=== PATIENT | male | born 1965 | race Caucasian/White ===

== ENCOUNTER 2017-04-06 07:40 | Day surgery (SDC) | payer OTHER ==
[2017-04-06 09:15] LABS: POTASSIUM 4.8 mmol/L (3.5-5.1)
[2017-04-06] MEDS ORDERED: LIDOCAINE 1% (MDV) 20 ML INJ (10:32)
[2017-04-06] MEDS ORDERED: IODIXANOL LOCM 100 ML BTL (10:32)
[2017-04-06] MEDS ORDERED: HEPARIN 1000 UNITS/NS (A-LINE) 1,000 ML (10:32)
[2017-04-06] MEDS ORDERED: MIDAZOLAM 1 MG/ML 2 ML INJ (11:36)
[2017-04-06] MEDS ORDERED: FENTAnyl 50 MCG/ML VIAL (11:36)
[2017-04-06] MEDS: hydrALAzine 20 MG INJ IV (12:37)
== END 2017-04-06 13:40 | disposition home or self-care (01) ==
LOC: SDS 07:40
DX: I12.0 Hypertensive chronic kidney disease with stage 5 chronic kidney disease or end stage renal disease (principal); N18.6 End stage renal disease
CPT/HCPCS: 37248; 84132

== ENCOUNTER 2017-07-06 03:29 | Inpatient (IN) | payer OTHER ==
[2017-07-06] MEDS: morphine 4 MG/ML VIAL IV (04:34)
[2017-07-06] MEDS: ONDANSETRON 4 MG INJ IV ×2 (04:34→05:57)
[2017-07-06 04:52] LABS: ADD MAN DIFF? NO
[2017-07-06 04:54] LABS: BASOPHILS % 0.4 % (0.0-2.0); EOSINOPHILS # 0.2 10^3/ul (0.0-0.5); EOSINOPHILS % 4.3 % (0.0-7.0); HEMATOCRIT 28.9 % (42.0-52.0); HEMOGLOBIN 9.4 g/dl (14.0-18.0); LYMPHOCYTES # 0.6 10^3/ul (0.8-2.9); LYMPHOCYTES % 13.9 % (15.0-51.0); MEAN CORPUSCULAR HEMOGLOBIN 32.8 pg (29.0-33.0); MEAN CORPUSCULAR HGB CONC 32.5 g/dl (32.0-37.0); MEAN CORPUSCULAR VOLUME 100.7 fl (82.0-101.0); MEAN PLATELET VOLUME 9.3 fl (7.4-10.4); MONOCYTE # 0.4 10^3/ul (0.3-0.9); MONOCYTES % 8.8 % (0.0-11.0); NEUTROPHIL # 3.2 10^3/ul (1.6-7.5); NEUTROPHILS % 72.2 % (39.0-77.0); PLATELET COUNT 113 10^3/UL (140-415); RED BLOOD COUNT 2.87 10^6/ul (4.70-6.10); RED CELL DISTRIBUTION WIDTH 14.4 % (11.5-14.5)
[2017-07-06 04:54] LABS: WHITE BLOOD COUNT 4.5 10^3/ul (4.8-10.8)
[2017-07-06 05:13] LABS: INR 1.23; PROTIME 15.7 Sec (11.9-14.9); PT RATIO 1.2
[2017-07-06 05:14] LABS: PARTIAL THROMBOPLASTIN TIME 45.7 Sec (25.0-35.0)
[2017-07-06 05:16] LABS: LACTIC ACID 0.5 mmol/L (0.5-2.0)
[2017-07-06 05:19] LABS: ALANINE AMINOTRANSFERASE 47 IU/L (13-69); ALBUMIN 3.8 g/dl (3.3-4.9); ALBUMIN/GLOBULIN RATIO 1.58; ALKALINE PHOSPHATASE 74 IU/L (42-121); ANION GAP 19 (8-16); ASPARTATE AMINO TRANSFERASE 35 IU/L (15-46); BLOOD UREA NITROGEN 71 mg/dl (7-20); CALCIUM 8.4 mg/dl (8.4-10.2); CARBON DIOXIDE 29 mmol/L (21-31); CHLORIDE 101 mmol/L (97-110); GLUCOSE 106 mg/dl (70-220); SODIUM 141 mmol/L (135-144); TOTAL PROTEIN 6.2 g/dl (6.1-8.1)
[2017-07-06 05:30] LABS: TROPONIN-I 0.015 ng/ml (0.00-0.12)
[2017-07-06 05:34] LABS: POTASSIUM 7.5 mmol/L (3.5-5.1)
[2017-07-06] MEDS: NA POLYST SULFON 15 GM/60 ML BTL PO (05:49)
[2017-07-06] MEDS: CALCIUM GLUCONATE 10% 1 GM in DEXTROSE 5% 100 ML IVPB (05:57)
[2017-07-06 06:26] LABS: LACTIC ACID 0.6 mmol/L (0.5-2.0)
[2017-07-06] MEDS ORDERED: DOCUSATE SODIUM 100 MG CAP PO ×2 (06:30→07:00)
[2017-07-06] MEDS ORDERED: VANCOMYCIN IV PER PHARMACY XX (06:30)
[2017-07-06] MEDS ORDERED: BISACODYL (EC) 5 MG TAB PO (06:30)
[2017-07-06] MEDS ORDERED: NACL 0.9% 3 ML SYG IV ×2 (06:30→07:00)
[2017-07-06] MEDS ORDERED: MAGNESIUM HYDROXIDE 30ML CUP PO (06:30)
[2017-07-06] MEDS ORDERED: BISACODYL 10 MG SUPP PR (06:30)
[2017-07-06] MEDS ORDERED: ONDANSETRON 4 MG TAB PO (07:00)
[2017-07-06] MEDS ORDERED: ONDANSETRON 4 MG INJ IV (07:00)
[2017-07-06] MEDS ORDERED: HYDROCODONE/APAP (5/325) TAB PO (07:00)
[2017-07-06] MEDS ORDERED: morphine 2 MG INJ IV (07:00)
[2017-07-06] MEDS ORDERED: DEXTROSE 50% 50 ML SYRINGE IV (07:00)
[2017-07-06] MEDS ORDERED: ACETAMINOPHEN 325 MG TAB PO (07:00)
[2017-07-06] MEDS ORDERED: ACETAMINOPHEN 650 MG SUPP PR (07:00)
[2017-07-06] MEDS: ALBUTEROL 0.5% (NEB) 2.5 MG/0.5 ML AMP INH (07:41)
[2017-07-06] MEDS ORDERED: DEXTROSE 50% 50 ML SYRINGE ×2 (07:46→08:34)
[2017-07-06] MEDS: AZTREONAM 1 GM/NS (PMX) 50 ML IVPB (08:00)
[2017-07-06] MEDS: INSULIN REGULAR, HUMAN 100 UNIT/1 ML 3ML VIAL IVP (08:12)
[2017-07-06] MEDS: DEXTROSE 50% 50 ML SYRINGE IV (08:30)
[2017-07-06 08:46] LABS: LACTIC ACID < 0.5 mmol/L (0.5-2.0)
[2017-07-06] MEDS: CHOLECALCIFEROL 2,000 UNIT CAP PO (09:00)
[2017-07-06] MEDS: NIFEdipine (XL) 60 MG TAB PO ×2 (09:00→20:35)
[2017-07-06] MEDS ORDERED: NON-FORMULARY/PATIENT OWN MED (Tiotropium Br/Olodaterol HCl (Stiolto Respimat Inhal Spray) INHALATION (09:00)
[2017-07-06] MEDS: APIXABAN 5 MG TABLET PO ×2 (09:00→20:35)
[2017-07-06 10:15] LABS: ADD UMIC YES; UR ASCORBIC ACID NEGATIVE (NEGATIVE); UR BILIRUBIN (Dip) NEGATIVE (NEGATIVE); UR BLOOD (Dip) 2+ mg/dL (NEGATIVE); UR CLARITY CLEAR (CLEAR); UR COLOR YELLOW (YELLOW); UR GLUCOSE (Dip) 1+ mg/dL (NEGATIVE); UR KETONES (Dip) NEGATIVE (NEGATIVE); UR LEUKOCYTE ESTERASE (Dip) NEGATIVE Leu/ul (NEGATIVE); UR NITRITE (Dip) NEGATIVE (NEGATIVE); UR RBC 148 /HPF (0-5); UR SPECIFIC GRAVITY (Dip) 1.009 (1.003-1.030); UR TOTAL PROTEIN (Dip) 2+ mg/dl (NEGATIVE); UR UROBILINOGEN (Dip) NEGATIVE (NEGATIVE); UR WBC 4 /HPF (0-5)
[2017-07-06 12:46] LABS: HEPATITIS B SURFACE ANTIGEN NEGATIVE (NEGATIVE)
[2017-07-06] MEDS ORDERED: CEFAZOLIN 1 GM/50 ML (PMX) 50 ML IVPB (14:00)
[2017-07-06] MEDS: VANCOMYCIN 1.5 GM in SOD CHLORIDE 0.9% 250 ML IVPB (15:37)
[2017-07-06] MEDS: HYDROCODONE/APAP (5/325) TAB PO (15:38)
[2017-07-06] MEDS: MULTIVIT/CA CARB/B CMPLX/FA TAB PO (15:39)
[2017-07-06] MEDS: ISOSORBIDE MONONITRATE(SR)30 MG TAB PO (15:39)
[2017-07-06] MEDS: FOLIC ACID 1 MG TAB PO (15:40)
[2017-07-06] MEDS: ASPIRIN (EC) 81 MG TAB PO (15:42)
[2017-07-06] MEDS: METOCLOPRAMIDE 10 MG INJ IV (16:18)
[2017-07-06] MEDS: ACETAMINOPHEN 325 MG TAB PO (17:12)
[2017-07-06 18:27] LABS: POTASSIUM 4.3 mmol/L (3.5-5.1)
[2017-07-06] MEDS: morphine 2 MG INJ IV (20:34)
[2017-07-06] MEDS: AZTREONAM 0.5 GM in SOD CHLORIDE 0.9% 50 ML IV (20:34)
[2017-07-07] MEDS: HYDROCODONE/APAP (5/325) TAB PO (02:30)
[2017-07-07 05:19] LABS: ADD MAN DIFF? NO
[2017-07-07 05:22] LABS: WHITE BLOOD COUNT 3.7 10^3/ul (4.8-10.8)
[2017-07-07 05:22] LABS: ABNORMAL IP MESSAGE 1; BASOPHILS % 0.3 % (0.0-2.0); EOSINOPHILS # 0.2 10^3/ul (0.0-0.5); EOSINOPHILS % 4.9 % (0.0-7.0); HEMATOCRIT 27.9 % (42.0-52.0); LYMPHOCYTES # 0.5 10^3/ul (0.8-2.9); LYMPHOCYTES % 14.1 % (15.0-51.0); MEAN CORPUSCULAR HEMOGLOBIN 32.6 pg (29.0-33.0); MEAN CORPUSCULAR HGB CONC 32.3 g/dl (32.0-37.0); MEAN CORPUSCULAR VOLUME 101.1 fl (82.0-101.0); MEAN PLATELET VOLUME 9.2 fl (7.4-10.4); MONOCYTE # 0.3 10^3/ul (0.3-0.9); MONOCYTES % 8.9 % (0.0-11.0); NEUTROPHIL # 2.6 10^3/ul (1.6-7.5); NEUTROPHILS % 71.3 % (39.0-77.0); PLATELET COUNT 106 10^3/UL (140-415); POSITIVE DIFF @See below; RED BLOOD COUNT 2.76 10^6/ul (4.70-6.10); RED CELL DISTRIBUTION WIDTH 14.5 % (11.5-14.5)
[2017-07-07 05:42] LABS: ANION GAP 14 (8-16); BLOOD UREA NITROGEN 43 mg/dl (7-20); CALCIUM 8.1 mg/dl (8.4-10.2); CARBON DIOXIDE 33 mmol/L (21-31); CHLORIDE 100 mmol/L (97-110); CREATININE 6.95 mg/dl (0.61-1.24); GLUCOSE 104 mg/dl (70-220); POTASSIUM 5.2 mmol/L (3.5-5.1); SODIUM 142 mmol/L (135-144)
[2017-07-07 06:13] LABS: MAGNESIUM 2.1 mg/dl (1.7-2.5)
[2017-07-07] MEDS: MULTIVIT/CA CARB/B CMPLX/FA TAB PO (08:15)
[2017-07-07] MEDS: ISOSORBIDE MONONITRATE(SR)30 MG TAB PO (08:16)
[2017-07-07] MEDS: NIFEdipine (XL) 60 MG TAB PO ×2 (08:17→21:00)
[2017-07-07] MEDS: FOLIC ACID 1 MG TAB PO (08:17)
[2017-07-07] MEDS: APIXABAN 5 MG TABLET PO ×2 (08:18→20:59)
[2017-07-07] MEDS: CHOLECALCIFEROL 2,000 UNIT CAP PO (08:19)
[2017-07-07] MEDS: ASPIRIN (EC) 81 MG TAB PO (08:19)
[2017-07-07] MEDS: morphine 2 MG INJ IV ×3 (08:22→21:01)
[2017-07-07] MEDS: AZTREONAM 0.5 GM in SOD CHLORIDE 0.9% 50 ML IV ×2 (09:59→20:58)
[2017-07-07] MEDS: TIOTROPIUM 18 MCG CAPSULE INHA DEV INH (13:42)
[2017-07-07] MEDS: NA POLYST SULFON 15 GM/60 ML BTL PO (13:48)
[2017-07-07] MEDS ORDERED: SODIUM CHLORIDE 0.9% 1L BAG IV (19:00)
[2017-07-07] MEDS ORDERED: ALBUMIN HUMAN 25% 50 ML IV (19:00)
[2017-07-07] MEDS: ARFORMOTEROL TARTRATE 15MCG/2 ML AMP INH (23:11)
[2017-07-08 05:50] LABS: ADD MAN DIFF? NO
[2017-07-08 05:53] LABS: ABNORMAL IP MESSAGE 1; BASOPHILS % 0.8 % (0.0-2.0); EOSINOPHILS # 0.3 10^3/ul (0.0-0.5); EOSINOPHILS % 10.9 % (0.0-7.0); HEMOGLOBIN 8.9 g/dl (14.0-18.0); LYMPHOCYTES # 0.6 10^3/ul (0.8-2.9); LYMPHOCYTES % 23.4 % (15.0-51.0); MEAN PLATELET VOLUME 9.6 fl (7.4-10.4); MONOCYTE # 0.3 10^3/ul (0.3-0.9); MONOCYTES % 12.6 % (0.0-11.0); NEUTROPHIL # 1.2 10^3/ul (1.6-7.5); NEUTROPHILS % 51.9 % (39.0-77.0); PLATELET COUNT 100 10^3/UL (140-415); POSITIVE DIFF @See below; RED CELL DISTRIBUTION WIDTH 13.9 % (11.5-14.5)
[2017-07-08 05:53] LABS: WHITE BLOOD COUNT 2.4 10^3/ul (4.8-10.8)
[2017-07-08 06:18] LABS: VANCOMYCIN,RANDOM 16.4 ug/ml
[2017-07-08 06:50] LABS: ANION GAP 11 (8-16); BLOOD UREA NITROGEN 52 mg/dl (7-20); CALCIUM 7.7 mg/dl (8.4-10.2); CARBON DIOXIDE 33 mmol/L (21-31); CHLORIDE 100 mmol/L (97-110); GLUCOSE 94 mg/dl (70-220); POTASSIUM 4.6 mmol/L (3.5-5.1); SODIUM 139 mmol/L (135-144)
[2017-07-08] MEDS: morphine 2 MG INJ IV ×2 (07:39→13:08)
[2017-07-08] MEDS: AZTREONAM 0.5 GM in SOD CHLORIDE 0.9% 50 ML IV (09:00)
[2017-07-08] MEDS: NIFEdipine (XL) 60 MG TAB PO (09:00)
[2017-07-08] MEDS: TIOTROPIUM 18 MCG CAPSULE INHA DEV INH (09:00)
[2017-07-08] MEDS: ARFORMOTEROL TARTRATE 15MCG/2 ML AMP INH (09:00)
[2017-07-08] MEDS: ISOSORBIDE MONONITRATE(SR)30 MG TAB PO (09:00)
[2017-07-08] MEDS: CHOLECALCIFEROL 2,000 UNIT CAP PO (09:01)
[2017-07-08] MEDS: ASPIRIN (EC) 81 MG TAB PO (09:01)
[2017-07-08] MEDS: APIXABAN 5 MG TABLET PO (09:02)
[2017-07-08] MEDS: VANCOMYCIN 1 GM 250 ML IVPB (10:00)
[2017-07-08] MEDS ORDERED: FENTAnyl 50 MCG/ML VIAL (11:46)
[2017-07-08] MEDS ORDERED: MIDAZOLAM 1 MG/ML 2 ML INJ (11:46)
[2017-07-08] MEDS ORDERED: LIDOCAINE 1% (MDV) 20 ML INJ (11:46)
[2017-07-08] MEDS ORDERED: IODIXANOL LOCM 100 ML BTL (11:46)
[2017-07-08] MEDS ORDERED: SOD CHLORIDE 0.9% 1,000 ML (11:46)
[2017-07-08] MEDS ORDERED: HEPARIN 1000 UNITS/ML 10 ML INJ ×2 (11:46→12:43)
[2017-07-08] MEDS ORDERED: IODIXANOL LOCM 50 ML BTL (12:11)
[2017-07-08] MEDS: MULTIVIT/CA CARB/B CMPLX/FA TAB PO (13:03)
[2017-07-08] MEDS: FOLIC ACID 1 MG TAB PO (13:03)
== END 2017-07-08 19:20 | disposition home or self-care (01) | DRG 252 ==
LOC: E/R 03:29 → MS3 05:52
PROC: 057A3ZZ Dilation of Left Brachial Vein, Percutaneous Approach (ICD-10-PCS; principal; 2017-07-08 10:30)
PROC: 027V3ZZ Dilation of Superior Vena Cava, Percutaneous Approach (ICD-10-PCS; 2017-07-08 10:30)
PROC: 057F3ZZ Dilation of Left Cephalic Vein, Percutaneous Approach (ICD-10-PCS; 2017-07-08 10:30)
DX: T82.858A Stenosis of other vascular prosthetic devices, implants and grafts, initial encounter (principal); N18.6 End stage renal disease; R65.10 Systemic inflammatory response syndrome (SIRS) of non-infectious origin without acute organ dysfunction; I13.2 Hypertensive heart and chronic kidney disease with heart failure and with stage 5 chronic kidney disease, or end stage renal disease; I87.1 Compression of vein; E87.5 Hyperkalemia; I25.10 Atherosclerotic heart disease of native coronary artery without angina pectoris; E78.5 Hyperlipidemia, unspecified; J44.9 Chronic obstructive pulmonary disease, unspecified; D63.1 Anemia in chronic kidney disease; I50.9 Heart failure, unspecified; B18.2 Chronic viral hepatitis C; Z79.82 Long term (current) use of aspirin; Z87.891 Personal history of nicotine dependence; Z99.2 Dependence on renal dialysis; Y83.2 Surgical operation with anastomosis, bypass or graft as the cause of abnormal reaction of the patient, or of later complication, without mention of misadventure at the time of the procedure
CPT/HCPCS: 36415; 36901; 36907; 71045; 76937; 80048; 80053; 80202; 81001; 82962; 83605; 83735; 84132; 84145; 84484; 85025; 85610; 85730; 87040; 87086; 87340; 87400; 90935; 93005; 93931; 94640; 94664; 96374; 96375; 96376; 99291-25

== ENCOUNTER 2017-08-17 10:55 | Observation (INO) | payer OTHER ==
[2017-08-17 11:50] LABS: ADD MAN DIFF? NO
[2017-08-17] MEDS: ASPIRIN 81 MG TAB PO (11:53)
[2017-08-17] MEDS: NITROGLYCERIN 2% 1 GM OINT PKT TD (11:53)
[2017-08-17 11:57] LABS: ABNORMAL IP MESSAGE 1; BASOPHILS % 0.4 % (0.0-2.0); EOSINOPHILS # 0.1 10^3/ul (0.0-0.5); EOSINOPHILS % 2.3 % (0.0-7.0); HEMATOCRIT 32.5 % (42.0-52.0); HEMOGLOBIN 10.9 g/dl (14.0-18.0); LYMPHOCYTES # 0.5 10^3/ul (0.8-2.9); LYMPHOCYTES % 20.2 % (15.0-51.0); MEAN CORPUSCULAR HEMOGLOBIN 32.6 pg (29.0-33.0); MEAN CORPUSCULAR HGB CONC 33.5 g/dl (32.0-37.0); MEAN CORPUSCULAR VOLUME 97.3 fl (82.0-101.0); MEAN PLATELET VOLUME 9.2 fl (7.4-10.4); MONOCYTE # 0.2 10^3/ul (0.3-0.9); MONOCYTES % 8.2 % (0.0-11.0); NEUTROPHIL # 1.8 10^3/ul (1.6-7.5); NEUTROPHILS % 68.5 % (39.0-77.0); PLATELET COUNT 110 10^3/UL (140-415); POSITIVE DIFF @See below; RED BLOOD COUNT 3.34 10^6/ul (4.70-6.10); RED CELL DISTRIBUTION WIDTH 13.4 % (11.5-14.5)
[2017-08-17 11:57] LABS: WHITE BLOOD COUNT 2.6 10^3/ul (4.8-10.8)
[2017-08-17 12:07] LABS: ANION GAP 12 (8-16); BLOOD UREA NITROGEN 24 mg/dl (7-20); CALCIUM 8.7 mg/dl (8.4-10.2); CARBON DIOXIDE 34 mmol/L (21-31); CHLORIDE 98 mmol/L (97-110); CREATININE 5.02 mg/dl (0.61-1.24); GLUCOSE 103 mg/dl (70-220); POTASSIUM 4.4 mmol/L (3.5-5.1); SODIUM 140 mmol/L (135-144)
[2017-08-17 12:12] LABS: INR 1.42; PROTIME 17.6 Sec (11.9-14.9); PT RATIO 1.4
[2017-08-17 12:13] LABS: PARTIAL THROMBOPLASTIN TIME 35.5 Sec (25.0-35.0)
[2017-08-17 12:17] LABS: PHOSPHORUS 3.8 mg/dl (2.5-4.9)
[2017-08-17 12:22] LABS: TROPONIN-I < 0.012 ng/ml (0.000-0.120)
[2017-08-17] MEDS: FAMOTIDINE 20 MG TAB PO (14:30)
[2017-08-17] MEDS ORDERED: ONDANSETRON 4 MG INJ IV (14:30)
[2017-08-17] MEDS ORDERED: ACETAMINOPHEN 325 MG TAB PO (14:30)
[2017-08-17] MEDS ORDERED: NACL 0.9% 3 ML SYG IV (14:30)
[2017-08-17] MEDS: morphine 2 MG INJ IV ×2 (14:51→22:10)
[2017-08-17] MEDS: NITROGLYCERIN (SL) 0.4 MG TAB SL (16:27)
[2017-08-17 17:24] LABS: CREATINE KINASE 71 IU/L (23-200)
[2017-08-17] MEDS: CALCIUM ACETATE 667 MG CAP PO (17:49)
[2017-08-17 17:50] LABS: CK INDEX 0.8
[2017-08-17 17:53] LABS: CK-MB 0.58 ng/ml (0.0-2.4); TROPONIN-I < 0.012 ng/ml (0.000-0.120)
[2017-08-17] MEDS: NIFEdipine (XL) 60 MG TAB PO (20:44)
[2017-08-17] MEDS ORDERED: ISOSORBIDE DINITRATE 10 MG TAB PO (21:00)
[2017-08-17] MEDS ORDERED: APIXABAN 5 MG TABLET PO (21:00)
[2017-08-18 00:23] LABS: CREATINE KINASE 65 IU/L (23-200)
[2017-08-18 00:36] LABS: CK INDEX 0.9
[2017-08-18 00:37] LABS: CK-MB 0.57 ng/ml (0.0-2.4); TROPONIN-I < 0.012 ng/ml (0.000-0.120)
[2017-08-18] MEDS: ALPRAZOLAM 0.25 MG TAB PO ×3 (02:36→10:09)
[2017-08-18 06:45] LABS: ADD MAN DIFF? NO
[2017-08-18 06:51] LABS: BASOPHILS % 0.7 % (0.0-2.0); EOSINOPHILS # 0.1 10^3/ul (0.0-0.5); EOSINOPHILS % 3.9 % (0.0-7.0); HEMATOCRIT 30.8 % (42.0-52.0); LYMPHOCYTES # 0.8 10^3/ul (0.8-2.9); LYMPHOCYTES % 24.9 % (15.0-51.0); MEAN CORPUSCULAR HEMOGLOBIN 32.5 pg (29.0-33.0); MEAN CORPUSCULAR HGB CONC 32.5 g/dl (32.0-37.0); MEAN PLATELET VOLUME 9.2 fl (7.4-10.4); MONOCYTE # 0.3 10^3/ul (0.3-0.9); MONOCYTES % 9.2 % (0.0-11.0); NEUTROPHIL # 1.9 10^3/ul (1.6-7.5); PLATELET COUNT 112 10^3/UL (140-415); RED BLOOD COUNT 3.08 10^6/ul (4.70-6.10); RED CELL DISTRIBUTION WIDTH 13.8 % (11.5-14.5)
[2017-08-18 06:51] LABS: WHITE BLOOD COUNT 3.1 10^3/ul (4.8-10.8)
[2017-08-18 07:07] LABS: INR 1.14; PROTIME 14.8 Sec (11.9-14.9); PT RATIO 1.2
[2017-08-18 07:08] LABS: CREATINE KINASE 60 IU/L (23-200)
[2017-08-18 07:14] LABS: ALANINE AMINOTRANSFERASE 50 IU/L (13-69); ALBUMIN 3.4 g/dl (3.3-4.9); ALBUMIN/GLOBULIN RATIO 1.36; ALKALINE PHOSPHATASE 50 IU/L (42-121); ANION GAP 14 (8-16); ASPARTATE AMINO TRANSFERASE 41 IU/L (15-46); BILIRUBIN,INDIRECT 0.1 mg/dl (0-1.1); BILIRUBIN,TOTAL 0.1 mg/dl (0.2-1.3); BLOOD UREA NITROGEN 33 mg/dl (7-20); CALCIUM 8.1 mg/dl (8.4-10.2); CARBON DIOXIDE 30 mmol/L (21-31); CHLORIDE 101 mmol/L (97-110); CHOL/HDL RATIO 3.6 RATIO; CHOLESTEROL 122 mg/dl (100-200); CREATININE 7.09 mg/dl (0.61-1.24); GLUCOSE 89 mg/dl (70-220); HDL CHOLESTEROL 33 mg/dl (28-71); LDL CHOLESTEROL,CALCULATED 73 mg/dl; MAGNESIUM 2.2 mg/dl (1.7-2.5); PHOSPHORUS 6.3 mg/dl (2.5-4.9); SODIUM 140 mmol/L (135-144); TOTAL PROTEIN 5.9 g/dl (6.1-8.1); TRIGLYCERIDES 82 mg/dl (0-149)
[2017-08-18 07:25] LABS: FREE T4 (FREE THYROXINE) 1.24 ng/dl (0.64-1.79)
[2017-08-18 07:36] LABS: CK-MB 0.57 ng/ml (0.0-2.4); TROPONIN-I < 0.012 ng/ml (0.000-0.120)
[2017-08-18] MEDS: CALCIUM ACETATE 667 MG CAP PO ×2 (08:00→12:45)
[2017-08-18 08:07] LABS: HEMOGLOBIN A1C 4.8 % (0-5.9)
[2017-08-18] MEDS: REGADENOSON 0.4 MG/5 ML SYG (08:50)
[2017-08-18] MEDS ORDERED: NON-FORMULARY/PATIENT OWN MED (Tiotropium Br/Olodaterol HCl (Stiolto Respimat Inhal Spray) INHALATION (09:00)
[2017-08-18] MEDS ORDERED: MULTIVIT/CA CARB/B CMPLX/FA TAB PO (09:00)
[2017-08-18] MEDS: MULTIVIT/CA CARB/B CMPLX/FA TAB PO (09:48)
[2017-08-18] MEDS: FAMOTIDINE 20 MG TAB PO (09:48)
[2017-08-18] MEDS: ISOSORBIDE MONONITRATE(SR)30 MG TAB PO (09:49)
[2017-08-18] MEDS: NIFEdipine (XL) 60 MG TAB PO (09:49)
[2017-08-18] MEDS: FOLIC ACID 1 MG TAB PO (09:49)
[2017-08-18] MEDS: ASPIRIN (EC) 81 MG TAB PO (09:49)
[2017-08-18] MEDS: TIOTROPIUM BR XX (10:00)
[2017-08-18] MEDS: [UNRECOGNIZED DRUG - OTHER] XX (10:00)
[2017-08-18] MEDS: OLODATEROL HCL XX (10:00)
[2017-08-18] MEDS: morphine 2 MG INJ IV (12:04)
[2017-08-18] MEDS ORDERED: morphine LIQ (10 MG/5 ML) CUP PO (15:30)
== END 2017-08-18 15:30 | disposition home or self-care (01) ==
LOC: E/R 10:55 → MS4 12:41
DX: R07.9 Chest pain, unspecified (principal); I25.10 Atherosclerotic heart disease of native coronary artery without angina pectoris; I13.2 Hypertensive heart and chronic kidney disease with heart failure and with stage 5 chronic kidney disease, or end stage renal disease; N18.6 End stage renal disease; I50.30 Unspecified diastolic (congestive) heart failure; Z99.2 Dependence on renal dialysis; I48.0 Paroxysmal atrial fibrillation; Z79.01 Long term (current) use of anticoagulants; D63.1 Anemia in chronic kidney disease; Z79.82 Long term (current) use of aspirin; Z88.6 Allergy status to analgesic agent; Z88.1 Allergy status to other antibiotic agents; R16.1 Splenomegaly, not elsewhere classified
CPT/HCPCS: 36415; 71045; 78452; 80048; 80053; 80061; 82550; 82553; 83036; 83735; 84100; 84439; 84443; 84484; 85025; 85610; 85730; 93005; 93017; 93306; 93970; 96374; 99285-25; G0378

== ENCOUNTER 2017-11-03 12:44 | Emergency (ER) | payer OTHER ==
[2017-11-03] MEDS: HYDROCODONE/APAP (10/325) TAB PO (13:53)
== END 2017-11-03 16:08 | disposition home or self-care (01) ==
LOC: E/R 12:44
DX: T82.838A Hemorrhage due to vascular prosthetic devices, implants and grafts, initial encounter (principal); N18.9 Chronic kidney disease, unspecified; I50.9 Heart failure, unspecified; I11.0 Hypertensive heart disease with heart failure; I12.9 Hypertensive chronic kidney disease with stage 1 through stage 4 chronic kidney disease, or unspecified chronic kidney disease; Y82.8 Other medical devices associated with adverse incidents; Z79.82 Long term (current) use of aspirin; Z99.2 Dependence on renal dialysis
CPT/HCPCS: 93931; 99284-25

== ENCOUNTER 2017-11-17 21:50 | Inpatient (IN) | payer OTHER ==
[2017-11-17 22:40] LABS: ADD MAN DIFF? NO
[2017-11-17 22:41] LABS: WHITE BLOOD COUNT 4.9 10^3/ul (4.8-10.8)
[2017-11-17 22:41] LABS: BASOPHILS % 0.2 % (0.0-2.0); EOSINOPHILS # 0.2 10^3/ul (0.0-0.5); HEMATOCRIT 40.8 % (42.0-52.0); HEMOGLOBIN 13.3 g/dl (14.0-18.0); LYMPHOCYTES # 0.8 10^3/ul (0.8-2.9); LYMPHOCYTES % 15.4 % (15.0-51.0); MEAN CORPUSCULAR HEMOGLOBIN 31.4 pg (29.0-33.0); MEAN CORPUSCULAR HGB CONC 32.6 g/dl (32.0-37.0); MEAN CORPUSCULAR VOLUME 96.2 fl (82.0-101.0); MEAN PLATELET VOLUME 9.7 fl (7.4-10.4); MONOCYTE # 0.4 10^3/ul (0.3-0.9); MONOCYTES % 7.9 % (0.0-11.0); NEUTROPHIL # 3.6 10^3/ul (1.6-7.5); NEUTROPHILS % 73.1 % (39.0-77.0); PLATELET COUNT 105 10^3/UL (140-415); RED BLOOD COUNT 4.24 10^6/ul (4.70-6.10); RED CELL DISTRIBUTION WIDTH 13.1 % (11.5-14.5)
[2017-11-17] MEDS: ACETAMINOPHEN 325 MG TAB PO (22:56)
[2017-11-17] MEDS: morphine 4 MG/ML VIAL IV (22:57)
[2017-11-17] MEDS: ONDANSETRON 4 MG INJ IV (22:57)
[2017-11-17 22:58] LABS: ALANINE AMINOTRANSFERASE 76 IU/L (13-69); ALBUMIN 4.4 g/dl (3.3-4.9); ALBUMIN/GLOBULIN RATIO 1.46; ALKALINE PHOSPHATASE 89 IU/L (42-121); ANION GAP 22 (8-16); ASPARTATE AMINO TRANSFERASE 66 IU/L (15-46); BILIRUBIN,INDIRECT 0.2 mg/dl (0-1.1); BILIRUBIN,TOTAL 0.2 mg/dl (0.2-1.3); BLOOD UREA NITROGEN 54 mg/dl (7-20); CALCIUM 8.4 mg/dl (8.4-10.2); CARBON DIOXIDE 28 mmol/L (21-31); CHLORIDE 96 mmol/L (97-110); CREATININE 9.06 mg/dl (0.61-1.24); GLUCOSE 100 mg/dl (70-220); SODIUM 139 mmol/L (135-144); TOTAL PROTEIN 7.4 g/dl (6.1-8.1)
[2017-11-17 23:00] LABS: INR 1.24; PARTIAL THROMBOPLASTIN TIME 33.4 Sec (25.0-35.0); PROTIME 15.8 Sec (11.9-14.9); PT RATIO 1.2
[2017-11-17 23:00] LABS: LACTIC ACID 1.1 mmol/L (0.5-2.0)
[2017-11-17 23:09] LABS: TROPONIN-I 0.013 ng/ml (0.000-0.120)
[2017-11-17 23:26] LABS: POTASSIUM 7.1 mmol/L (3.5-5.1)
[2017-11-18] MEDS: NA POLYST SULFON 15 GM/60 ML BTL PO (00:40)
[2017-11-18 01:41] LABS: LACTIC ACID 1.2 mmol/L (0.5-2.0)
[2017-11-18] MEDS ORDERED: DOCUSATE SODIUM 100 MG CAP PO (02:00)
[2017-11-18] MEDS ORDERED: BISACODYL (EC) 5 MG TAB PO (02:00)
[2017-11-18] MEDS ORDERED: NACL 0.9% 3 ML SYG IV (02:00)
[2017-11-18] MEDS: INSULIN REGULAR, HUMAN 100 UNIT/1 ML 3ML VIAL IVP (02:28)
[2017-11-18] MEDS: ALBUTEROL 0.083% (NEB) 2.5 MG/3 ML AMP HHN (02:31)
[2017-11-18] MEDS: DEXTROSE 50% 50 ML SYRINGE IV (02:32)
[2017-11-18] MEDS: CALCIUM GLUCONATE 10% 1 GM in DEXTROSE 5% 100 ML IVPB (03:19)
[2017-11-18] MEDS: morphine 4 MG/ML VIAL IV ×2 (03:45→18:12)
[2017-11-18 06:30] LABS: ANION GAP 20 (8-16); BLOOD UREA NITROGEN 58 mg/dl (7-20); CALCIUM 7.8 mg/dl (8.4-10.2); CARBON DIOXIDE 26 mmol/L (21-31); CHLORIDE 101 mmol/L (97-110); CREATININE 9.14 mg/dl (0.61-1.24); GLUCOSE 95 mg/dl (70-220); POTASSIUM 5.7 mmol/L (3.5-5.1); SODIUM 141 mmol/L (135-144)
[2017-11-18] MEDS: FOLIC ACID 1 MG TAB PO (09:24)
[2017-11-18] MEDS: NIFEdipine (XL) 60 MG TAB PO (09:24)
[2017-11-18] MEDS: CHOLECALCIFEROL 2,000 UNIT CAP PO (09:24)
[2017-11-18] MEDS: APIXABAN 5 MG TABLET PO (09:24)
[2017-11-18] MEDS: ASPIRIN (EC) 81 MG TAB PO (09:31)
[2017-11-18 10:50] LABS: HEPATITIS B SURFACE ANTIGEN NEGATIVE (NEGATIVE)
[2017-11-18] MEDS: ONDANSETRON 4 MG INJ IV (11:26)
[2017-11-18 11:54] LABS: HEPATITIS B SURFACE ANTIBODY INDETERMINATE (NEGATIVE)
[2017-11-18] MEDS: traMADol 50 MG TAB PO ×2 (13:08→19:31)
[2017-11-18 14:35] LABS: ADD UMIC YES; UR ASCORBIC ACID NEGATIVE (NEGATIVE); UR BACTERIA FEW /HPF (NONE SEEN); UR BILIRUBIN (Dip) NEGATIVE (NEGATIVE); UR BLOOD (Dip) 2+ mg/dL (NEGATIVE); UR CLARITY CLEAR (CLEAR); UR COLOR STRAW (YELLOW); UR GLUCOSE (Dip) NEGATIVE (NEGATIVE); UR KETONES (Dip) NEGATIVE (NEGATIVE); UR LEUKOCYTE ESTERASE (Dip) NEGATIVE Leu/ul (NEGATIVE); UR NITRITE (Dip) NEGATIVE (NEGATIVE); UR RBC 42 /HPF (0-5); UR SPECIFIC GRAVITY (Dip) 1.009 (1.003-1.030); UR TOTAL PROTEIN (Dip) 2+ mg/dl (NEGATIVE); UR UROBILINOGEN (Dip) NEGATIVE (NEGATIVE); UR WBC 1 /HPF (0-5)
[2017-11-18] MEDS: LEVOFLOXACIN 500MG/D5W (PMX) 100 ML IVPB (18:04)
[2017-11-18] MEDS: ACETAMINOPHEN 325 MG TAB PO (23:20)
[2017-11-19] MEDS ORDERED: VANCOMYCIN IV PER PHARMACY XX
[2017-11-19] MEDS: ATORVASTATIN 40 MG TAB PO ×2 (00:34→20:38)
[2017-11-19] MEDS: NIFEdipine (XL) 60 MG TAB PO ×3 (00:34→20:39)
[2017-11-19] MEDS: LORAZEPAM 0.5 MG TAB PO (00:35)
[2017-11-19] MEDS: APIXABAN 5 MG TABLET PO ×3 (00:35→20:38)
[2017-11-19] MEDS: morphine 4 MG/ML VIAL IV ×3 (00:35→20:38)
[2017-11-19] MEDS: VANCOMYCIN 1.5 GM in SOD CHLORIDE 0.9% 250 ML IVPB (01:38)
[2017-11-19] MEDS: ONDANSETRON 4 MG INJ IV (07:03)
[2017-11-19] MEDS: CHOLECALCIFEROL 2,000 UNIT CAP PO (08:22)
[2017-11-19] MEDS: ASPIRIN (EC) 81 MG TAB PO (08:22)
[2017-11-19] MEDS: FOLIC ACID 1 MG TAB PO (08:22)
[2017-11-19 09:21] LABS: ADD MAN DIFF? NO
[2017-11-19 09:38] LABS: ABNORMAL IP MESSAGE 1; BASOPHILS % 0.4 % (0.0-2.0); EOSINOPHILS % 0.2 % (0.0-7.0); HEMATOCRIT 34.8 % (42.0-52.0); HEMOGLOBIN 11.2 g/dl (14.0-18.0); LYMPHOCYTES # 0.6 10^3/ul (0.8-2.9); MEAN CORPUSCULAR HEMOGLOBIN 31.5 pg (29.0-33.0); MEAN CORPUSCULAR HGB CONC 32.2 g/dl (32.0-37.0); MEAN CORPUSCULAR VOLUME 97.8 fl (82.0-101.0); MEAN PLATELET VOLUME 10.3 fl (7.4-10.4); MONOCYTE # 0.4 10^3/ul (0.3-0.9); MONOCYTES % 6.9 % (0.0-11.0); NEUTROPHIL # 4.3 10^3/ul (1.6-7.5); NEUTROPHILS % 80.9 % (39.0-77.0); PLATELET COUNT 105 10^3/UL (140-415); POSITIVE DIFF @See below; RED BLOOD COUNT 3.56 10^6/ul (4.70-6.10); RED CELL DISTRIBUTION WIDTH 13.2 % (11.5-14.5)
[2017-11-19 09:38] LABS: WHITE BLOOD COUNT 5.4 10^3/ul (4.8-10.8)
[2017-11-19 09:44] LABS: HEMOGLOBIN A1C 5.1 % (0-5.9)
[2017-11-19 10:09] LABS: AMPHETAMINE/METHAMPHETAMINE Negative (NEGATIVE); BARBITURATES Negative (NEGATIVE); BENZODIAZEPINES Negative (NEGATIVE); CANNABINOIDS Negative (NEGATIVE); COCAINE Negative (NEGATIVE); OPIATES Positive (NEGATIVE)
[2017-11-19 10:30] LABS: ALANINE AMINOTRANSFERASE 49 IU/L (13-69); ALBUMIN 3.1 g/dl (3.3-4.9); ALKALINE PHOSPHATASE 51 IU/L (42-121); ANION GAP 14 (8-16); ASPARTATE AMINO TRANSFERASE 39 IU/L (15-46); BILIRUBIN,INDIRECT 0.2 mg/dl (0-1.1); BILIRUBIN,TOTAL 0.2 mg/dl (0.2-1.3); BLOOD UREA NITROGEN 36 mg/dl (7-20); CALCIUM 8.2 mg/dl (8.4-10.2); CARBON DIOXIDE 30 mmol/L (21-31); CHLORIDE 100 mmol/L (97-110); CHOLESTEROL 101 mg/dl (100-200); CREATININE 7.07 mg/dl (0.61-1.24); GLUCOSE 91 mg/dl (70-220); HDL CHOLESTEROL 33 mg/dl (28-71); POTASSIUM 4.7 mmol/L (3.5-5.1); SODIUM 139 mmol/L (135-144); TOTAL PROTEIN 5.3 g/dl (6.1-8.1)
[2017-11-19 10:55] LABS: LDL CHOLESTEROL,CALCULATED 56 mg/dl; TRIGLYCERIDES 60 mg/dl (0-149)
[2017-11-20] MEDS: LORAZEPAM 0.5 MG TAB PO (02:04)
[2017-11-20] MEDS: morphine 4 MG/ML VIAL IV ×2 (06:16→12:29)
[2017-11-20 06:55] LABS: ADD MAN DIFF? NO
[2017-11-20 07:01] LABS: WHITE BLOOD COUNT 3.5 10^3/ul (4.8-10.8)
[2017-11-20 07:01] LABS: BASOPHILS % 0.6 % (0.0-2.0); EOSINOPHILS # 0.2 10^3/ul (0.0-0.5); HEMATOCRIT 33.3 % (42.0-52.0); LYMPHOCYTES # 0.7 10^3/ul (0.8-2.9); LYMPHOCYTES % 18.8 % (15.0-51.0); MEAN CORPUSCULAR HEMOGLOBIN 32.2 pg (29.0-33.0); MEAN CORPUSCULAR VOLUME 97.4 fl (82.0-101.0); MONOCYTE # 0.3 10^3/ul (0.3-0.9); MONOCYTES % 9.4 % (0.0-11.0); NEUTROPHIL # 2.3 10^3/ul (1.6-7.5); NEUTROPHILS % 64.9 % (39.0-77.0); PLATELET COUNT 101 10^3/UL (140-415); RED BLOOD COUNT 3.42 10^6/ul (4.70-6.10)
[2017-11-20 07:25] LABS: ANION GAP 16 (8-16); BLOOD UREA NITROGEN 54 mg/dl (7-20); CALCIUM 7.9 mg/dl (8.4-10.2); CARBON DIOXIDE 29 mmol/L (21-31); CHLORIDE 99 mmol/L (97-110); CREATININE 8.73 mg/dl (0.61-1.24); GLUCOSE 80 mg/dl (70-220); POTASSIUM 4.7 mmol/L (3.5-5.1); SODIUM 139 mmol/L (135-144)
[2017-11-20] MEDS: FOLIC ACID 1 MG TAB PO (08:07)
[2017-11-20] MEDS: ASPIRIN (EC) 81 MG TAB PO (08:07)
[2017-11-20] MEDS: APIXABAN 5 MG TABLET PO ×2 (08:08→20:07)
[2017-11-20] MEDS: NIFEdipine (XL) 60 MG TAB PO ×2 (08:08→20:07)
[2017-11-20] MEDS: CHOLECALCIFEROL 2,000 UNIT CAP PO (08:08)
[2017-11-20] MEDS: ALBUTEROL 0.083% (NEB) 2.5 MG/3 ML AMP HHN ×3 (11:00→20:34)
[2017-11-20] MEDS ORDERED: GENTAMICIN IV PER PHARMACY XX (11:30)
[2017-11-20] MEDS: GUAIFENESIN LA 600 MG TABSR PO ×2 (12:10→20:07)
[2017-11-20] MEDS: GENTAMICIN 120 MG/NS (PMX) 100 ML IVPB (12:28)
[2017-11-20] MEDS: DOCUSATE SODIUM 100 MG CAP PO (14:00)
[2017-11-20] MEDS: LEVOFLOXACIN 250 MG TAB PO ×2 (14:00→20:02)
[2017-11-20] MEDS ORDERED: LEVOFLOXACIN 250MG/D5W (PMX) 50 ML IVPB (18:00)
[2017-11-20] MEDS: ONDANSETRON 4 MG INJ IV (20:02)
[2017-11-20] MEDS: ATORVASTATIN 40 MG TAB PO (20:07)
[2017-11-20] MEDS: GENTAMICIN 80MG/NS (pmx) 100 ML IVPB (22:40)
[2017-11-21] MEDS: ALBUTEROL 0.083% (NEB) 2.5 MG/3 ML AMP HHN ×4 (01:31→20:00)
[2017-11-21] MEDS: LORAZEPAM 0.5 MG TAB PO ×2 (02:05→20:34)
[2017-11-21] MEDS: morphine 4 MG/ML VIAL IV ×3 (06:17→19:40)
[2017-11-21 06:52] LABS: ADD MAN DIFF? NO
[2017-11-21 07:01] LABS: ABNORMAL IP MESSAGE 1; BASOPHILS % 0.6 % (0.0-2.0); EOSINOPHILS # 0.2 10^3/ul (0.0-0.5); EOSINOPHILS % 6.3 % (0.0-7.0); HEMATOCRIT 33.9 % (42.0-52.0); HEMOGLOBIN 11.3 g/dl (14.0-18.0); LYMPHOCYTES # 0.5 10^3/ul (0.8-2.9); LYMPHOCYTES % 14.4 % (15.0-51.0); MEAN CORPUSCULAR HEMOGLOBIN 31.9 pg (29.0-33.0); MEAN CORPUSCULAR HGB CONC 33.3 g/dl (32.0-37.0); MEAN CORPUSCULAR VOLUME 95.8 fl (82.0-101.0); MONOCYTE # 0.3 10^3/ul (0.3-0.9); MONOCYTES % 10.2 % (0.0-11.0); NEUTROPHIL # 2.3 10^3/ul (1.6-7.5); NEUTROPHILS % 67.9 % (39.0-77.0); PLATELET COUNT 106 10^3/UL (140-415); POSITIVE DIFF @See below; RED BLOOD COUNT 3.54 10^6/ul (4.70-6.10); RED CELL DISTRIBUTION WIDTH 12.1 % (11.5-14.5)
[2017-11-21 07:01] LABS: WHITE BLOOD COUNT 3.3 10^3/ul (4.8-10.8)
[2017-11-21 07:25] LABS: VANCOMYCIN,RANDOM 13.6 ug/ml
[2017-11-21 07:27] LABS: ANION GAP 16 (8-16); BLOOD UREA NITROGEN 33 mg/dl (7-20); CALCIUM 8.5 mg/dl (8.4-10.2); CARBON DIOXIDE 30 mmol/L (21-31); CHLORIDE 98 mmol/L (97-110); GLUCOSE 89 mg/dl (70-220); MAGNESIUM 2.1 mg/dl (1.7-2.5); POTASSIUM 4.4 mmol/L (3.5-5.1); SODIUM 140 mmol/L (135-144)
[2017-11-21] MEDS: NIFEdipine (XL) 60 MG TAB PO ×2 (08:15→20:35)
[2017-11-21] MEDS: ASPIRIN (EC) 81 MG TAB PO (08:15)
[2017-11-21] MEDS: GUAIFENESIN LA 600 MG TABSR PO ×2 (08:15→20:34)
[2017-11-21] MEDS: FOLIC ACID 1 MG TAB PO (08:15)
[2017-11-21] MEDS: DOCUSATE SODIUM 100 MG CAP PO ×2 (08:15→20:34)
[2017-11-21] MEDS: CHOLECALCIFEROL 2,000 UNIT CAP PO (08:15)
[2017-11-21] MEDS: APIXABAN 5 MG TABLET PO ×2 (08:16→20:34)
[2017-11-21] MEDS: traMADol 50 MG TAB PO (14:05)
[2017-11-21] MEDS: ATORVASTATIN 40 MG TAB PO (20:34)
[2017-11-21] MEDS: VANCOMYCIN 1 GM 250 ML IVPB (20:42)
[2017-11-22] MEDS: morphine 4 MG/ML VIAL IV ×2 (01:05→06:27)
[2017-11-22] MEDS: ALBUTEROL 0.083% (NEB) 2.5 MG/3 ML AMP HHN ×2 (02:00→08:00)
[2017-11-22 06:33] LABS: ADD MAN DIFF? NO
[2017-11-22 06:35] LABS: ABNORMAL IP MESSAGE 1; BASOPHILS % 0.7 % (0.0-2.0); EOSINOPHILS # 0.2 10^3/ul (0.0-0.5); EOSINOPHILS % 7.8 % (0.0-7.0); HEMATOCRIT 34.1 % (42.0-52.0); HEMOGLOBIN 11.4 g/dl (14.0-18.0); LYMPHOCYTES # 0.6 10^3/ul (0.8-2.9); LYMPHOCYTES % 19.8 % (15.0-51.0); MEAN CORPUSCULAR HEMOGLOBIN 31.8 pg (29.0-33.0); MEAN CORPUSCULAR HGB CONC 33.4 g/dl (32.0-37.0); MEAN PLATELET VOLUME 9.8 fl (7.4-10.4); MONOCYTE # 0.4 10^3/ul (0.3-0.9); MONOCYTES % 11.9 % (0.0-11.0); NEUTROPHIL # 1.7 10^3/ul (1.6-7.5); NEUTROPHILS % 59.1 % (39.0-77.0); PLATELET COUNT 103 10^3/UL (140-415); POSITIVE DIFF @See below; RED BLOOD COUNT 3.59 10^6/ul (4.70-6.10); RED CELL DISTRIBUTION WIDTH 12.4 % (11.5-14.5)
[2017-11-22 06:35] LABS: WHITE BLOOD COUNT 2.9 10^3/ul (4.8-10.8)
[2017-11-22 07:04] LABS: MAGNESIUM 2.4 mg/dl (1.7-2.5)
[2017-11-22 07:04] LABS: PHOSPHORUS 6.4 mg/dl (2.5-4.9)
[2017-11-22 07:06] LABS: ANION GAP 16 (8-16); BLOOD UREA NITROGEN 48 mg/dl (7-20); CALCIUM 8.3 mg/dl (8.4-10.2); CARBON DIOXIDE 28 mmol/L (21-31); CHLORIDE 100 mmol/L (97-110); CREATININE 9.14 mg/dl (0.61-1.24); GLUCOSE 83 mg/dl (70-220); POTASSIUM 4.6 mmol/L (3.5-5.1); SODIUM 139 mmol/L (135-144)
[2017-11-22] MEDS: LORAZEPAM 0.5 MG TAB PO (07:58)
[2017-11-22] MEDS: FOLIC ACID 1 MG TAB PO (08:04)
[2017-11-22] MEDS: GUAIFENESIN LA 600 MG TABSR PO (08:04)
[2017-11-22] MEDS: ASPIRIN (EC) 81 MG TAB PO (08:04)
[2017-11-22] MEDS: CHOLECALCIFEROL 2,000 UNIT CAP PO (08:05)
[2017-11-22] MEDS: NIFEdipine (XL) 60 MG TAB PO (08:05)
[2017-11-22] MEDS: APIXABAN 5 MG TABLET PO (08:05)
[2017-11-22] MEDS: DOCUSATE SODIUM 100 MG CAP PO (08:05)
== END 2017-11-22 13:21 | disposition home or self-care (01) | DRG 871 ==
LOC: TEL 11-19 00:47 → E/R 21:50 → TEL 11-18 01:13
PROC: 5A1D70Z Performance of Urinary Filtration, Intermittent, Less than 6 Hours Per Day (ICD-10-PCS; principal; 2017-11-18)
PROC: 5A1D70Z Performance of Urinary Filtration, Intermittent, Less than 6 Hours Per Day (ICD-10-PCS; 2017-11-20)
DX: A41.9 Sepsis, unspecified organism (principal); J18.9 Pneumonia, unspecified organism; N18.6 End stage renal disease; N39.0 Urinary tract infection, site not specified; I13.2 Hypertensive heart and chronic kidney disease with heart failure and with stage 5 chronic kidney disease, or end stage renal disease; I50.30 Unspecified diastolic (congestive) heart failure; E87.5 Hyperkalemia; E11.22 Type 2 diabetes mellitus with diabetic chronic kidney disease; E78.5 Hyperlipidemia, unspecified; I48.0 Paroxysmal atrial fibrillation; I25.10 Atherosclerotic heart disease of native coronary artery without angina pectoris; D64.9 Anemia, unspecified; K52.9 Noninfective gastroenteritis and colitis, unspecified; R16.1 Splenomegaly, not elsewhere classified; B96.1 Klebsiella pneumoniae [K. pneumoniae] as the cause of diseases classified elsewhere; K76.89 Other specified diseases of liver; R00.1 Bradycardia, unspecified; Z79.82 Long term (current) use of aspirin; Z99.2 Dependence on renal dialysis
CPT/HCPCS: 36415; 71045; 71250; 74176; 80048; 80053; 80061; 80202; 80307; 81001; 82962; 83036; 83605; 83735; 84100; 84443; 84484; 85025; 85610; 85730; 86706; 87040; 87081; 87086; 87340; 87400; 90935; 93005; 94640; 94664; 96374; 96375; 99285-25

== ENCOUNTER 2018-04-02 07:56 | Inpatient (IN) | payer OTHER ==
[2018-04-02 08:24] LABS: ADD MAN DIFF? NO
[2018-04-02] MEDS: ACETAMINOPHEN 325 MG TAB PO ×3 (08:28→20:21)
[2018-04-02 08:29] LABS: ABNORMAL IP MESSAGE 1; BASOPHILS % 0.6 % (0.0-2.0); EOSINOPHILS # 0.1 10^3/ul (0.0-0.5); EOSINOPHILS % 1.9 % (0.0-7.0); HEMATOCRIT 41.2 % (42.0-52.0); HEMOGLOBIN 13.6 g/dl (14.0-18.0); LYMPHOCYTES # 0.7 10^3/ul (0.8-2.9); LYMPHOCYTES % 21.5 % (15.0-51.0); MEAN CORPUSCULAR VOLUME 93.8 fl (82.0-101.0); MEAN PLATELET VOLUME 10.9 fl (7.4-10.4); MONOCYTE # 0.3 10^3/ul (0.3-0.9); MONOCYTES % 9.3 % (0.0-11.0); NEUTROPHIL # 2.1 10^3/ul (1.6-7.5); NEUTROPHILS % 66.1 % (39.0-77.0); PLATELET COUNT 73 10^3/UL (140-415); POSITIVE DIFF @See below; RED BLOOD COUNT 4.39 10^6/ul (4.70-6.10)
[2018-04-02 08:29] LABS: WHITE BLOOD COUNT 3.2 10^3/ul (4.8-10.8)
[2018-04-02] MEDS: AZTREONAM 1 GM/NS (PMX) 50 ML IVPB (08:29)
[2018-04-02] MEDS: NITROGLYCERIN 2% 1 GM OINT PKT TD (08:29)
[2018-04-02] MEDS: NITROGLYCERIN (SL) 0.4 MG TAB SL (08:40)
[2018-04-02 08:48] LABS: ADD UMIC YES; UR ASCORBIC ACID NEGATIVE (NEGATIVE); UR BILIRUBIN (Dip) NEGATIVE (NEGATIVE); UR BLOOD (Dip) 2+ mg/dL (NEGATIVE); UR CLARITY CLEAR (CLEAR); UR COLOR YELLOW (YELLOW); UR GLUCOSE (Dip) NEGATIVE (NEGATIVE); UR KETONES (Dip) NEGATIVE (NEGATIVE); UR LEUKOCYTE ESTERASE (Dip) NEGATIVE Leu/ul (NEGATIVE); UR NITRITE (Dip) NEGATIVE (NEGATIVE); UR RBC 72 /HPF (0-5); UR SPECIFIC GRAVITY (Dip) 1.009 (1.003-1.030); UR TOTAL PROTEIN (Dip) 2+ mg/dl (NEGATIVE); UR UROBILINOGEN (Dip) NEGATIVE (NEGATIVE); UR WBC 2 /HPF (0-5)
[2018-04-02 08:50] LABS: ANION GAP 8 (5-13); BLOOD UREA NITROGEN 30 mg/dl (7-20); CALCIUM 8.8 mg/dl (8.4-10.2); CARBON DIOXIDE 31 mmol/L (21-31); CHLORIDE 100 mmol/L (97-110); CREATININE 5.54 mg/dl (0.61-1.24); Estimated GFR 11 mL/min (>60); GLUCOSE 89 mg/dl (70-220); POTASSIUM 4.9 mmol/L (3.5-5.1); SODIUM 139 mmol/L (135-144)
[2018-04-02 09:01] LABS: TROPONIN-I 0.039 ng/ml (0.000-0.120)
[2018-04-02] MEDS: VANCOMYCIN 1 GM (PMX) 250 ML IVPB (09:09)
[2018-04-02] MEDS ORDERED: ACETAMINOPHEN 325 MG TAB PO (09:30)
[2018-04-02] MEDS ORDERED: ONDANSETRON 4 MG INJ IV ×2 (09:30→12:00)
[2018-04-02] MEDS: OSELTAMIVIR 75 MG CAP PO (09:44)
[2018-04-02] MEDS: IBUPROFEN 800 MG TAB PO (09:44)
[2018-04-02] MEDS ORDERED: NACL 0.9% 3 ML SYG IV (12:00)
[2018-04-02] MEDS ORDERED: ZOLPIDEM 5 MG TAB PO (12:00)
[2018-04-02] MEDS ORDERED: DOCUSATE SODIUM 100 MG CAP PO (12:00)
[2018-04-02] MEDS ORDERED: morphine 2 MG INJ IV (12:00)
[2018-04-02 12:37] LABS: LACTIC ACID 1.3 mmol/L (0.5-2.0)
[2018-04-02] MEDS: CEFTRIAXONE 1 GM/50 ML (PMX) 50 ML IVPB (13:24)
[2018-04-02] MEDS: HYDROCODONE/APAP (5/325) TAB PO ×2 (13:51→21:41)
[2018-04-02 13:54] LABS: CREATINE KINASE 85 IU/L (23-200)
[2018-04-02 14:06] LABS: CK INDEX 0.5; CK-MB 0.44 ng/ml (0.0-2.4); TROPONIN-I 0.031 ng/ml (0.000-0.120)
[2018-04-02] MEDS: AZITHROMYCIN 500MG/NS (PMX) 250 ML IVPB (15:15)
[2018-04-02] MEDS ORDERED: SEVELAMER 800 MG TAB PO (17:35)
[2018-04-02] MEDS: SEVELAMER CARBONATE 800 MG TABLET PO (17:35)
[2018-04-02] MEDS: PREGABALIN 75 MG CAP PO (20:20)
[2018-04-02] MEDS: NIFEdipine (XL) 60 MG TAB PO (20:21)
[2018-04-02] MEDS: APIXABAN 5 MG TABLET PO (20:22)
[2018-04-02 20:31] LABS: CREATINE KINASE 92 IU/L (23-200)
[2018-04-02 20:43] LABS: CK INDEX 0.6; CK-MB 0.54 ng/ml (0.0-2.4); TROPONIN-I 0.029 ng/ml (0.000-0.120)
[2018-04-02] MEDS ORDERED: OSELTAMIVIR 75 MG CAP PO (21:00)
[2018-04-03] MEDS: ACETAMINOPHEN 325 MG TAB PO (04:06)
[2018-04-03 06:21] LABS: ADD MAN DIFF? NO
[2018-04-03 06:24] LABS: ABNORMAL IP MESSAGE 1; BASOPHILS % 0.8 % (0.0-2.0); EOSINOPHILS % 1.5 % (0.0-7.0); HEMATOCRIT 37.5 % (42.0-52.0); LYMPHOCYTES # 0.6 10^3/ul (0.8-2.9); LYMPHOCYTES % 24.6 % (15.0-51.0); MEAN CORPUSCULAR HEMOGLOBIN 31.1 pg (29.0-33.0); MEAN CORPUSCULAR VOLUME 97.2 fl (82.0-101.0); MEAN PLATELET VOLUME 11.1 fl (7.4-10.4); MONOCYTE # 0.3 10^3/ul (0.3-0.9); MONOCYTES % 12.3 % (0.0-11.0); NEUTROPHIL # 1.6 10^3/ul (1.6-7.5); NEUTROPHILS % 60.4 % (39.0-77.0); PLATELET COUNT 66 10^3/UL (140-415); POSITIVE DIFF @See below; RED BLOOD COUNT 3.86 10^6/ul (4.70-6.10); RED CELL DISTRIBUTION WIDTH 15.2 % (11.5-14.5)
[2018-04-03 06:24] LABS: WHITE BLOOD COUNT 2.6 10^3/ul (4.8-10.8)
[2018-04-03 06:55] LABS: ANION GAP 10 (5-13); BLOOD UREA NITROGEN 50 mg/dl (7-20); CALCIUM 7.7 mg/dl (8.4-10.2); CARBON DIOXIDE 27 mmol/L (21-31); CHLORIDE 102 mmol/L (97-110); CREATININE 8.84 mg/dl (0.61-1.24); Estimated GFR 6 mL/min (>60); GLUCOSE 100 mg/dl (70-220); MAGNESIUM 2.2 mg/dl (1.7-2.5); PHOSPHORUS 7.4 mg/dl (2.5-4.9); SODIUM 139 mmol/L (135-144)
[2018-04-03 07:02] LABS: POTASSIUM 5.6 mmol/L (3.5-5.1)
[2018-04-03 07:12] LABS: HEMOGLOBIN A1C 4.7 % (0-5.9)
[2018-04-03] MEDS: PREGABALIN 75 MG CAP PO ×2 (08:20→21:06)
[2018-04-03] MEDS: NIFEdipine (XL) 60 MG TAB PO ×2 (08:20→21:07)
[2018-04-03] MEDS: SEVELAMER CARBONATE 800 MG TABLET PO ×3 (08:20→17:15)
[2018-04-03] MEDS: APIXABAN 5 MG TABLET PO ×2 (08:20→21:06)
[2018-04-03] MEDS: ISOSORBIDE MONONITRATE(SR)30 MG TAB PO (08:24)
[2018-04-03] MEDS: HYDROCODONE/APAP (5/325) TAB PO ×2 (08:24→16:01)
[2018-04-03] MEDS: CEFTRIAXONE 500 MG in SOD CHLORIDE 0.9% 50 ML IVPB (13:07)
[2018-04-03] MEDS: AZITHROMYCIN 500MG/NS (PMX) 250 ML IVPB (13:49)
[2018-04-03] MEDS: SODIUM POLYSTYRENE 15 GM KIT (POWDER + SORBITOL) PO (15:07)
[2018-04-04 06:52] LABS: WHITE BLOOD COUNT 2.1 10^3/ul (4.8-10.8)
[2018-04-04 06:52] LABS: ABNORMAL IP MESSAGE 1; HEMATOCRIT 37.2 % (42.0-52.0); MEAN CORPUSCULAR HEMOGLOBIN 30.6 pg (29.0-33.0); MEAN CORPUSCULAR HGB CONC 32.3 g/dl (32.0-37.0); MEAN CORPUSCULAR VOLUME 94.9 fl (82.0-101.0); MEAN PLATELET VOLUME 10.8 fl (7.4-10.4); PLATELET COUNT 63 10^3/UL (140-415); POSITIVE DIFF @See below; RED BLOOD COUNT 3.92 10^6/ul (4.70-6.10); RED CELL DISTRIBUTION WIDTH 14.8 % (11.5-14.5)
[2018-04-04 07:05] LABS: ADD MAN DIFF? YES
[2018-04-04 07:23] LABS: ANION GAP 11 (5-13); BLOOD UREA NITROGEN 58 mg/dl (7-20); CALCIUM 7.8 mg/dl (8.4-10.2); CARBON DIOXIDE 26 mmol/L (21-31); CHLORIDE 102 mmol/L (97-110); Estimated GFR 5 mL/min (>60); GLUCOSE 105 mg/dl (70-220); SODIUM 139 mmol/L (135-144)
[2018-04-04 07:36] LABS: POTASSIUM 5.2 mmol/L (3.5-5.1)
[2018-04-04] MEDS: NIFEdipine (XL) 60 MG TAB PO ×2 (08:42→20:08)
[2018-04-04] MEDS: APIXABAN 5 MG TABLET PO ×2 (08:42→20:08)
[2018-04-04] MEDS: PREGABALIN 75 MG CAP PO ×2 (08:42→20:08)
[2018-04-04] MEDS: ISOSORBIDE MONONITRATE(SR)30 MG TAB PO (08:42)
[2018-04-04 08:44] LABS: ANISOCYTOSIS 1+ (0-0); BAND NEUTROPHILS #M 0.3 10^3/ul (0.0-0.6); BAND NEUTROPHILS % (M) 15 % (0-4); BASOPHILS % (M) 1 % (0-2); EOSINOPHILS % (M) 7 % (0-7); LYMPHOCYTES #M 0.5 10^3/ul (0.8-2.9); LYMPHOCYTES % (M) 24 % (15-51); MONOCYTE #M 0.1 10^3/ul (0.3-0.9); MONOCYTES % (M) 5 % (0-11); MYELOCYTES % (M) 1 % (0-0); PLATELET ESTIMATE SIG DECREASED; POIKILOCYTOSIS 1+ (0-0); REACTIVE LYMPHOCYTES #M 0.2 10^3/ul (0.0-0.0); REACTIVE LYMPHOCYTES% (M) 10 % (0-0); SEG NEUT #M 0.8 10^3/ul (1.6-7.5); SEGMENTED NEUTROPHILS (M) % 37 % (39-77); SMUDGE%M 10 % (0-0)
[2018-04-04] MEDS: HYDROCODONE/APAP (5/325) TAB PO ×2 (08:44→20:08)
[2018-04-04] MEDS ORDERED: morphine LIQ (10 MG/5 ML) CUP PO (09:00)
[2018-04-04] MEDS: SEVELAMER CARBONATE 800 MG TABLET PO ×3 (10:36→17:20)
[2018-04-04] MEDS: CEFTRIAXONE 500 MG in SOD CHLORIDE 0.9% 50 ML IVPB (12:10)
[2018-04-04] MEDS: AZITHROMYCIN 500MG/NS (PMX) 250 ML IVPB (14:49)
[2018-04-04 16:08] LABS: HEPATITIS B SURFACE ANTIGEN NEGATIVE (NEGATIVE)
[2018-04-05 05:48] LABS: WHITE BLOOD COUNT 2.1 10^3/ul (4.8-10.8)
[2018-04-05 05:48] LABS: ABNORMAL IP MESSAGE 1; HEMATOCRIT 35.1 % (42.0-52.0); HEMOGLOBIN 11.6 g/dl (14.0-18.0); MEAN CORPUSCULAR HEMOGLOBIN 31.4 pg (29.0-33.0); MEAN CORPUSCULAR VOLUME 94.9 fl (82.0-101.0); MEAN PLATELET VOLUME 10.7 fl (7.4-10.4); PLATELET COUNT 75 10^3/UL (140-415); POSITIVE DIFF @See below
[2018-04-05 06:00] LABS: ADD MAN DIFF? YES
[2018-04-05 06:18] LABS: ANION GAP 15 (5-13); BLOOD UREA NITROGEN 65 mg/dl (7-20); CALCIUM 7.7 mg/dl (8.4-10.2); CARBON DIOXIDE 25 mmol/L (21-31); CHLORIDE 99 mmol/L (97-110); CREATININE 12.78 mg/dl (0.61-1.24); Estimated GFR 4 mL/min (>60); GLUCOSE 82 mg/dl (70-220); POTASSIUM 5.1 mmol/L (3.5-5.1); SODIUM 139 mmol/L (135-144)
[2018-04-05 07:06] LABS: ANISOCYTOSIS 1+ (0-0); BAND NEUTROPHILS % (M) 2 % (0-4); EOSINOPHILS % (M) 6 % (0-7); LYMPHOCYTES #M 0.9 10^3/ul (0.8-2.9); LYMPHOCYTES % (M) 44 % (15-51); MICROCYTOSIS 1+ (0-0); MONOCYTE #M 0.1 10^3/ul (0.3-0.9); MONOCYTES % (M) 6 % (0-11); PLATELET ESTIMATE DECREASED; SEG NEUT #M 0.9 10^3/ul (1.6-7.5); SEGMENTED NEUTROPHILS (M) % 42 % (39-77); SMUDGE%M 9 % (0-0)
[2018-04-05] MEDS: SEVELAMER CARBONATE 800 MG TABLET PO ×3 (08:11→17:35)
[2018-04-05] MEDS: OSELTAMIVIR 30 MG CAP PO (08:11)
[2018-04-05] MEDS: NIFEdipine (XL) 60 MG TAB PO (08:12)
[2018-04-05] MEDS: HYDROCODONE/APAP (5/325) TAB PO (08:12)
[2018-04-05] MEDS: PREGABALIN 75 MG CAP PO (08:12)
[2018-04-05] MEDS: APIXABAN 5 MG TABLET PO (08:12)
[2018-04-05] MEDS: ISOSORBIDE MONONITRATE(SR)30 MG TAB PO (08:13)
[2018-04-05] MEDS: CEFTRIAXONE 500 MG in SOD CHLORIDE 0.9% 50 ML IVPB (13:32)
[2018-04-05] MEDS: AZITHROMYCIN 500MG/NS (PMX) 250 ML IVPB ×2 (13:55→14:00)
[2018-04-05] MEDS: HEPARIN 1000 UNITS/ML 10 ML INJ CATHETER (18:21)
== END 2018-04-05 19:15 | disposition home or self-care (01) | DRG 871 ==
LOC: E/R 07:56 → PP2 09:17
DX: A41.89 Other specified sepsis (principal); N18.6 End stage renal disease; J10.00 Influenza due to other identified influenza virus with unspecified type of pneumonia; D61.818 Other pancytopenia; I12.0 Hypertensive chronic kidney disease with stage 5 chronic kidney disease or end stage renal disease; J10.1 Influenza due to other identified influenza virus with other respiratory manifestations; Z99.2 Dependence on renal dialysis; I25.10 Atherosclerotic heart disease of native coronary artery without angina pectoris; I48.0 Paroxysmal atrial fibrillation; Z79.01 Long term (current) use of anticoagulants; E78.5 Hyperlipidemia, unspecified
CPT/HCPCS: 36415; 71045; 80048; 81001; 82550; 82553; 83036; 83605; 83735; 84100; 84484; 85025; 87040; 87081; 87086; 87340; 87400; 90686; 90935; 93005; 96374; 96375; 99291-25

== ENCOUNTER 2018-05-10 01:20 | Inpatient (IN) | payer OTHER ==
[2018-05-10 02:04] LABS: BASOPHILS % 0.4 % (0.0-2.0); EOSINOPHILS # 0.1 10^3/ul (0.0-0.5); EOSINOPHILS % 1.2 % (0.0-7.0); HEMATOCRIT 33.2 % (42.0-52.0); HEMOGLOBIN 10.8 g/dl (14.0-18.0); LYMPHOCYTES # 0.6 10^3/ul (0.8-2.9); LYMPHOCYTES % 12.7 % (15.0-51.0); MEAN CORPUSCULAR HGB CONC 32.5 g/dl (32.0-37.0); MEAN CORPUSCULAR VOLUME 95.4 fl (82.0-101.0); MONOCYTE # 0.4 10^3/ul (0.3-0.9); MONOCYTES % 7.2 % (0.0-11.0); NEUTROPHIL # 3.8 10^3/ul (1.6-7.5); NEUTROPHILS % 78.3 % (39.0-77.0); PLATELET COUNT 106 10^3/UL (140-415); RED BLOOD COUNT 3.48 10^6/ul (4.70-6.10); RED CELL DISTRIBUTION WIDTH 16.6 % (11.5-14.5)
[2018-05-10 02:04] LABS: WHITE BLOOD COUNT 4.9 10^3/ul (4.8-10.8)
[2018-05-10] MEDS: SODIUM CHLORIDE 0.9% 1L BAG IV* (02:05)
[2018-05-10] MEDS: ACETAMINOPHEN 325 MG TAB PO ×2 (02:06→16:34)
[2018-05-10] MEDS: LEVOFLOXACIN 750MG/D5W (PMX) 150 ML IVPB (02:09)
[2018-05-10 02:10] LABS: ADD MAN DIFF? NO
[2018-05-10 02:21] LABS: ALANINE AMINOTRANSFERASE 27 IU/L (13-69); ALBUMIN 3.9 g/dl (3.3-4.9); ALKALINE PHOSPHATASE 57 IU/L (42-121); ANION GAP 20 (5-13); ASPARTATE AMINO TRANSFERASE 22 IU/L (15-46); BILIRUBIN,INDIRECT 0.3 mg/dl (0-1.1); BILIRUBIN,TOTAL 0.3 mg/dl (0.2-1.3); BLOOD UREA NITROGEN 97 mg/dl (7-20); CALCIUM 8.1 mg/dl (8.4-10.2); CARBON DIOXIDE 19 mmol/L (21-31); CHLORIDE 100 mmol/L (97-110); CREATININE 13.03 mg/dl (0.61-1.24); Estimated GFR 4 mL/min (>60); GLUCOSE 108 mg/dl (70-220); SODIUM 139 mmol/L (135-144); TOTAL PROTEIN 6.5 g/dl (6.1-8.1)
[2018-05-10 02:23] LABS: INR 1.45; PROTIME 17.7 Sec (11.9-14.9); PT RATIO 1.4
[2018-05-10 02:24] LABS: PARTIAL THROMBOPLASTIN TIME 38.8 Sec (23.0-35.0)
[2018-05-10 02:32] LABS: TROPONIN-I 0.029 ng/ml (0.000-0.120)
[2018-05-10] MEDS: LEVOFLOXACIN 500MG/D5W (PMX) 100 ML IVPB (02:55)
[2018-05-10 03:02] LABS: POTASSIUM 7.1 mmol/L (3.5-5.1)
[2018-05-10 03:10] LABS: ADD UMIC YES; UR ASCORBIC ACID NEGATIVE (NEGATIVE); UR BACTERIA FEW /HPF (NONE SEEN); UR BILIRUBIN (Dip) NEGATIVE (NEGATIVE); UR BLOOD (Dip) 3+ mg/dL (NEGATIVE); UR CLARITY CLEAR (CLEAR); UR COLOR YELLOW (YELLOW); UR GLUCOSE (Dip) 1+ mg/dL (NEGATIVE); UR KETONES (Dip) NEGATIVE (NEGATIVE); UR LEUKOCYTE ESTERASE (Dip) NEGATIVE Leu/ul (NEGATIVE); UR NITRITE (Dip) NEGATIVE (NEGATIVE); UR RBC > 182 /HPF (0-5); UR SPECIFIC GRAVITY (Dip) 1.009 (1.003-1.030); UR TOTAL PROTEIN (Dip) 2+ mg/dl (NEGATIVE); UR UROBILINOGEN (Dip) NEGATIVE (NEGATIVE); UR WBC 6 /HPF (0-5)
[2018-05-10] MEDS: SODIUM POLYSTYRENE 15 GM KIT (POWDER + SORBITOL) PO (03:11)
[2018-05-10] MEDS: CA CHLORIDE 10% 10 ML SYRINGE IV (03:21)
[2018-05-10] MEDS: VANCOMYCIN 1 GM (PMX) 250 ML IVPB ×2 (03:25→04:08)
[2018-05-10] MEDS: DEXTROSE 50% 50 ML SYRINGE IV (03:42)
[2018-05-10] MEDS: INSULIN REGULAR, HUMAN 100 UNIT/1 ML 3ML VIAL IVP (03:43)
[2018-05-10] MEDS: NA BICARBONATE 8.4% 50 ML SYG IV (03:43)
[2018-05-10] MEDS ORDERED: NACL 0.9% 3 ML SYG IV (04:00)
[2018-05-10] MEDS ORDERED: ONDANSETRON 4 MG TAB PO (04:00)
[2018-05-10] MEDS ORDERED: DOCUSATE SODIUM 100 MG CAP PO (04:00)
[2018-05-10] MEDS ORDERED: VANCOMYCIN IV PER PHARMACY XX (04:00)
[2018-05-10] MEDS ORDERED: BISACODYL (EC) 5 MG TAB PO (04:00)
[2018-05-10] MEDS ORDERED: HEPARIN 5,000 UNIT/1 ML VIAL SC (06:00)
[2018-05-10 06:36] LABS: ANION GAP 18 (5-13); BLOOD UREA NITROGEN 91 mg/dl (7-20); CALCIUM 8.6 mg/dl (8.4-10.2); CARBON DIOXIDE 20 mmol/L (21-31); CHLORIDE 105 mmol/L (97-110); CREATININE 12.54 mg/dl (0.61-1.24); Estimated GFR 4 mL/min (>60); GLUCOSE 63 mg/dl (70-220); PHOSPHORUS 6.7 mg/dl (2.5-4.9); POTASSIUM 5.5 mmol/L (3.5-5.1); SODIUM 143 mmol/L (135-144)
[2018-05-10 07:29] LABS: LACTIC ACID 1.1 mmol/L (0.5-2.0)
[2018-05-10] MEDS: AZTREONAM 1 GM/NS (PMX) 50 ML IVPB (07:35)
[2018-05-10] MEDS: SEVELAMER CARBONATE 2.4 GM PKT PO ×3 (08:00→18:14)
[2018-05-10 08:23] LABS: CREATINE KINASE 88 IU/L (23-200)
[2018-05-10 08:36] LABS: CK INDEX 1.1; CK-MB 0.97 ng/ml (0.0-2.4); TROPONIN-I 0.029 ng/ml (0.000-0.120)
[2018-05-10 11:57] LABS: CREATINE KINASE 81 IU/L (23-200)
[2018-05-10 12:09] LABS: CK INDEX 1.4; CK-MB 1.13 ng/ml (0.0-2.4); TROPONIN-I 0.028 ng/ml (0.000-0.120)
[2018-05-10] MEDS: NITROGLYCERIN (SL) 0.4 MG TAB SL (12:29)
[2018-05-10] MEDS: PREGABALIN 75 MG CAP PO ×2 (12:29→20:46)
[2018-05-10] MEDS: APIXABAN 5 MG TABLET PO ×2 (12:29→20:46)
[2018-05-10 13:07] LABS: HEPATITIS B SURFACE ANTIGEN NEGATIVE (NEGATIVE)
[2018-05-10] MEDS: morphine 2 MG INJ IV (13:08)
[2018-05-10] MEDS: SPECIAL NON-STANDARD MEDICATION PO (16:00)
[2018-05-10] MEDS: ISOSORBIDE MONONITRATE(SR)30 MG TAB PO (18:15)
[2018-05-10] MEDS: NIFEdipine (XL) 60 MG TAB PO ×2 (18:15→20:46)
[2018-05-10] MEDS: HYDROCODONE/APAP (5/325) TAB PO (18:20)
[2018-05-11] MEDS: HYDROCODONE/APAP (5/325) TAB PO ×4 (00:52→21:48)
[2018-05-11] MEDS: ACETAMINOPHEN 325 MG TAB PO ×2 (03:15→16:01)
[2018-05-11] MEDS ORDERED: LEVOFLOXACIN 750MG/D5W (PMX) 150 ML IVPB (04:00)
[2018-05-11 06:46] LABS: ADD MAN DIFF? NO
[2018-05-11 06:50] LABS: WHITE BLOOD COUNT 3.9 10^3/ul (4.8-10.8)
[2018-05-11 06:50] LABS: ABNORMAL IP MESSAGE 1; BASOPHILS % 0.5 % (0.0-2.0); EOSINOPHILS % 0.8 % (0.0-7.0); HEMATOCRIT 31.9 % (42.0-52.0); HEMOGLOBIN 10.4 g/dl (14.0-18.0); LYMPHOCYTES # 0.7 10^3/ul (0.8-2.9); LYMPHOCYTES % 16.8 % (15.0-51.0); MEAN CORPUSCULAR HGB CONC 32.6 g/dl (32.0-37.0); MEAN CORPUSCULAR VOLUME 95.2 fl (82.0-101.0); MONOCYTE # 0.4 10^3/ul (0.3-0.9); MONOCYTES % 8.9 % (0.0-11.0); NEUTROPHIL # 2.9 10^3/ul (1.6-7.5); NEUTROPHILS % 72.5 % (39.0-77.0); PLATELET COUNT 86 10^3/UL (140-415); POSITIVE DIFF @See below; RED BLOOD COUNT 3.35 10^6/ul (4.70-6.10); RED CELL DISTRIBUTION WIDTH 16.4 % (11.5-14.5)
[2018-05-11 07:17] LABS: ANION GAP 12 (5-13); BLOOD UREA NITROGEN 55 mg/dl (7-20); CALCIUM 8.1 mg/dl (8.4-10.2); CARBON DIOXIDE 32 mmol/L (21-31); CHLORIDE 96 mmol/L (97-110); CREATININE 8.88 mg/dl (0.61-1.24); Estimated GFR 6 mL/min (>60); GLUCOSE 86 mg/dl (70-220); POTASSIUM 4.6 mmol/L (3.5-5.1); SODIUM 140 mmol/L (135-144)
[2018-05-11] MEDS: SPECIAL NON-STANDARD MEDICATION PO (08:13)
[2018-05-11] MEDS: APIXABAN 5 MG TABLET PO ×2 (08:13→20:36)
[2018-05-11] MEDS: PREGABALIN 75 MG CAP PO ×2 (08:13→20:37)
[2018-05-11] MEDS: ISOSORBIDE MONONITRATE(SR)30 MG TAB PO (08:13)
[2018-05-11] MEDS: SEVELAMER CARBONATE 2.4 GM PKT PO ×3 (08:13→17:11)
[2018-05-11] MEDS: NIFEdipine (XL) 60 MG TAB PO ×2 (08:14→20:36)
[2018-05-11] MEDS: ALBUTEROL/IPRATROPIUM (NEB) 3 ML AMP HHN ×2 (14:00→21:12)
[2018-05-11] MEDS ORDERED: GENTAMICIN IV PER PHARMACY XX (15:00)
[2018-05-11] MEDS: GENTAMICIN 120 MG/NS (PMX) 100 ML IVPB (17:12)
[2018-05-11] MEDS: CHLORHEXIDINE GLUCONATE 15 ML UD CUP MT (20:36)
[2018-05-12] MEDS: LEVOFLOXACIN 500MG/D5W (PMX) 100 ML IVPB (01:00)
[2018-05-12] MEDS: ACETAMINOPHEN 325 MG TAB PO (01:00)
[2018-05-12 06:08] LABS: ADD MAN DIFF? NO
[2018-05-12 06:18] LABS: WHITE BLOOD COUNT 3.7 10^3/ul (4.8-10.8)
[2018-05-12 06:18] LABS: BASOPHILS % 0.3 % (0.0-2.0); EOSINOPHILS # 0.2 10^3/ul (0.0-0.5); EOSINOPHILS % 5.2 % (0.0-7.0); HEMATOCRIT 30.4 % (42.0-52.0); LYMPHOCYTES # 0.7 10^3/ul (0.8-2.9); LYMPHOCYTES % 19.2 % (15.0-51.0); MEAN CORPUSCULAR HEMOGLOBIN 30.9 pg (29.0-33.0); MEAN CORPUSCULAR HGB CONC 32.9 g/dl (32.0-37.0); MEAN CORPUSCULAR VOLUME 93.8 fl (82.0-101.0); MEAN PLATELET VOLUME 10.1 fl (7.4-10.4); MONOCYTE # 0.3 10^3/ul (0.3-0.9); MONOCYTES % 7.7 % (0.0-11.0); NEUTROPHIL # 2.5 10^3/ul (1.6-7.5); NEUTROPHILS % 67.1 % (39.0-77.0); PLATELET COUNT 103 10^3/UL (140-415); RED BLOOD COUNT 3.24 10^6/ul (4.70-6.10); RED CELL DISTRIBUTION WIDTH 15.4 % (11.5-14.5)
[2018-05-12 06:49] LABS: ANION GAP 14 (5-13); BLOOD UREA NITROGEN 67 mg/dl (7-20); CARBON DIOXIDE 32 mmol/L (21-31); CHLORIDE 93 mmol/L (97-110); CREATININE 10.59 mg/dl (0.61-1.24); Estimated GFR 5 mL/min (>60); GLUCOSE 104 mg/dl (70-220); POTASSIUM 4.5 mmol/L (3.5-5.1); SODIUM 139 mmol/L (135-144)
[2018-05-12 07:14] LABS: VANCOMYCIN,RANDOM 8.4 ug/ml
[2018-05-12 07:34] LABS: IRON 45 ug/dl (35-150)
[2018-05-12 07:44] LABS: % IRON SATURATION 29 % SAT (22-52); TOTAL IRON BINDING CAPACITY 154 ug/dl (241-421)
[2018-05-12] MEDS: APIXABAN 5 MG TABLET PO (08:25)
[2018-05-12] MEDS: PREGABALIN 75 MG CAP PO (08:25)
[2018-05-12] MEDS: SEVELAMER CARBONATE 2.4 GM PKT PO ×3 (08:25→17:35)
[2018-05-12] MEDS: SPECIAL NON-STANDARD MEDICATION PO (08:26)
[2018-05-12] MEDS: ISOSORBIDE MONONITRATE(SR)30 MG TAB PO (08:29)
[2018-05-12] MEDS: NIFEdipine (XL) 60 MG TAB PO (08:29)
[2018-05-12] MEDS: CHLORHEXIDINE GLUCONATE 15 ML UD CUP MT (09:36)
[2018-05-12] MEDS: ALBUTEROL/IPRATROPIUM (NEB) 3 ML AMP HHN ×3 (10:01→21:43)
[2018-05-12] MEDS: VANCOMYCIN 1 GM 250 ML IVPB (12:08)
[2018-05-12] MEDS: HYDROCODONE/APAP (5/325) TAB PO (12:13)
[2018-05-12] MEDS: GUAIFENESIN/CODEINE 5ML CUP PO (12:13)
[2018-05-12] MEDS: SOD FERRIC GLUC COMPLX 125 MG in SOD CHLORIDE 0.9% 100 ML IVPB (14:30)
[2018-05-12] MEDS: FUROSEMIDE 40 MG INJ IV (15:30)
[2018-05-13] MEDS: PREGABALIN 75 MG CAP PO ×3 (00:39→20:18)
[2018-05-13] MEDS: CHLORHEXIDINE GLUCONATE 15 ML UD CUP MT ×3 (00:39→20:18)
[2018-05-13] MEDS: HYDROCODONE/APAP (5/325) TAB PO ×3 (00:39→17:00)
[2018-05-13] MEDS: NIFEdipine (XL) 30 MG TAB PO ×3 (00:40→20:20)
[2018-05-13 06:53] LABS: ADD MAN DIFF? NO
[2018-05-13 06:59] LABS: WHITE BLOOD COUNT 2.8 10^3/ul (4.8-10.8)
[2018-05-13 06:59] LABS: ABNORMAL IP MESSAGE 1; BASOPHILS % 0.7 % (0.0-2.0); EOSINOPHILS # 0.2 10^3/ul (0.0-0.5); EOSINOPHILS % 5.3 % (0.0-7.0); HEMOGLOBIN 9.3 g/dl (14.0-18.0); LYMPHOCYTES # 0.7 10^3/ul (0.8-2.9); MEAN CORPUSCULAR HEMOGLOBIN 31.2 pg (29.0-33.0); MEAN CORPUSCULAR HGB CONC 32.1 g/dl (32.0-37.0); MEAN CORPUSCULAR VOLUME 97.3 fl (82.0-101.0); MEAN PLATELET VOLUME 9.9 fl (7.4-10.4); MONOCYTE # 0.2 10^3/ul (0.3-0.9); MONOCYTES % 6.7 % (0.0-11.0); NEUTROPHIL # 1.8 10^3/ul (1.6-7.5); NEUTROPHILS % 63.6 % (39.0-77.0); PLATELET COUNT 95 10^3/UL (140-415); POSITIVE DIFF @See below; RED BLOOD COUNT 2.98 10^6/ul (4.70-6.10); RED CELL DISTRIBUTION WIDTH 15.4 % (11.5-14.5)
[2018-05-13 07:18] LABS: ANION GAP 9 (5-13); BLOOD UREA NITROGEN 38 mg/dl (7-20); CALCIUM 8.3 mg/dl (8.4-10.2); CARBON DIOXIDE 27 mmol/L (21-31); CHLORIDE 103 mmol/L (97-110); Estimated GFR 7 mL/min (>60); GLUCOSE 85 mg/dl (70-220); SODIUM 139 mmol/L (135-144)
[2018-05-13 07:21] LABS: MAGNESIUM 2.1 mg/dl (1.7-2.5)
[2018-05-13 07:21] LABS: PHOSPHORUS 5.4 mg/dl (2.5-4.9)
[2018-05-13] MEDS: ALBUTEROL/IPRATROPIUM (NEB) 3 ML AMP HHN ×3 (08:04→20:30)
[2018-05-13] MEDS: ISOSORBIDE MONONITRATE(SR)30 MG TAB PO (08:20)
[2018-05-13] MEDS: SEVELAMER CARBONATE 2.4 GM PKT PO ×3 (08:21→17:29)
[2018-05-13] MEDS: SPECIAL NON-STANDARD MEDICATION PO (08:22)
[2018-05-13] MEDS: FUROSEMIDE 40 MG INJ IV ×2 (08:23→20:19)
[2018-05-13] MEDS: SOD FERRIC GLUC COMPLX 125 MG in SOD CHLORIDE 0.9% 100 ML IVPB (12:28)
[2018-05-13] MEDS: LEVOFLOXACIN 500 MG TAB PO (16:59)
[2018-05-13] MEDS: GENTAMICIN 80 MG/NS (PMX) 50 ML IVPB (17:58)
[2018-05-14] MEDS: HYDROCODONE/APAP (5/325) TAB PO ×2 (01:26→20:35)
[2018-05-14 06:28] LABS: ADD MAN DIFF? NO
[2018-05-14 06:32] LABS: BASOPHILS % 0.7 % (0.0-2.0); EOSINOPHILS # 0.1 10^3/ul (0.0-0.5); EOSINOPHILS % 4.9 % (0.0-7.0); HEMATOCRIT 29.5 % (42.0-52.0); HEMOGLOBIN 9.4 g/dl (14.0-18.0); LYMPHOCYTES # 0.6 10^3/ul (0.8-2.9); LYMPHOCYTES % 22.5 % (15.0-51.0); MEAN CORPUSCULAR HEMOGLOBIN 30.7 pg (29.0-33.0); MEAN CORPUSCULAR HGB CONC 31.9 g/dl (32.0-37.0); MEAN CORPUSCULAR VOLUME 96.4 fl (82.0-101.0); MEAN PLATELET VOLUME 10.3 fl (7.4-10.4); MONOCYTE # 0.3 10^3/ul (0.3-0.9); MONOCYTES % 8.8 % (0.0-11.0); NEUTROPHIL # 1.8 10^3/ul (1.6-7.5); PLATELET COUNT 102 10^3/UL (140-415); RED BLOOD COUNT 3.06 10^6/ul (4.70-6.10); RED CELL DISTRIBUTION WIDTH 15.5 % (11.5-14.5)
[2018-05-14 06:32] LABS: WHITE BLOOD COUNT 2.9 10^3/ul (4.8-10.8)
[2018-05-14] MEDS: SEVELAMER CARBONATE 2.4 GM PKT PO ×3 (08:05→17:17)
[2018-05-14] MEDS: CHLORHEXIDINE GLUCONATE 15 ML UD CUP MT ×2 (08:05→20:33)
[2018-05-14] MEDS: PREGABALIN 75 MG CAP PO ×2 (08:05→20:34)
[2018-05-14] MEDS: SPECIAL NON-STANDARD MEDICATION PO (08:06)
[2018-05-14] MEDS: ALBUTEROL/IPRATROPIUM (NEB) 3 ML AMP HHN ×3 (08:15→20:29)
[2018-05-14] MEDS: FUROSEMIDE 40 MG INJ IV ×2 (09:49→20:35)
[2018-05-14] MEDS: ISOSORBIDE MONONITRATE(SR)30 MG TAB PO (09:49)
[2018-05-14] MEDS: NIFEdipine (XL) 30 MG TAB PO ×2 (09:49→20:34)
[2018-05-14] MEDS: SOD FERRIC GLUC COMPLX 125 MG in SOD CHLORIDE 0.9% 100 ML IVPB (17:17)
== END 2018-05-14 21:50 | DRG 871 ==
LOC: E/R 01:20 → TEL 03:27
PROC: 5A1D70Z Performance of Urinary Filtration, Intermittent, Less than 6 Hours Per Day (ICD-10-PCS; principal; 2018-05-14)
DX: A41.9 Sepsis, unspecified organism (principal); N18.6 End stage renal disease; J18.9 Pneumonia, unspecified organism; I50.33 Acute on chronic diastolic (congestive) heart failure; I13.2 Hypertensive heart and chronic kidney disease with heart failure and with stage 5 chronic kidney disease, or end stage renal disease; I16.1 Hypertensive emergency; D61.818 Other pancytopenia; I42.9 Cardiomyopathy, unspecified; E87.5 Hyperkalemia; I48.0 Paroxysmal atrial fibrillation; E78.5 Hyperlipidemia, unspecified; I25.10 Atherosclerotic heart disease of native coronary artery without angina pectoris; R06.89 Other abnormalities of breathing; B18.2 Chronic viral hepatitis C; I27.20 Pulmonary hypertension, unspecified; I34.0 Nonrheumatic mitral (valve) insufficiency; Z79.01 Long term (current) use of anticoagulants; Z99.2 Dependence on renal dialysis
CPT/HCPCS: 36415; 71045; 80048; 80053; 80202; 81001; 82550; 82553; 82962; 83540; 83605; 83735; 84100; 84484; 85025; 85610; 85730; 87040; 87070; 87081; 87086; 87340; 87400; 90935; 93005; 93306; 94640; 94664; 96374; 96375; 99291-25

== ENCOUNTER 2018-06-20 21:23 | Inpatient (IN) | payer OTHER ==
[2018-06-21 00:29] LABS: ADD MAN DIFF? NO
[2018-06-21 00:32] LABS: WHITE BLOOD COUNT 4.3 10^3/ul (4.8-10.8)
[2018-06-21 00:32] LABS: BASOPHILS % 0.5 % (0.0-2.0); EOSINOPHILS # 0.1 10^3/ul (0.0-0.5); EOSINOPHILS % 1.4 % (0.0-7.0); HEMATOCRIT 38.4 % (42.0-52.0); HEMOGLOBIN 12.1 g/dl (14.0-18.0); LYMPHOCYTES # 0.9 10^3/ul (0.8-2.9); LYMPHOCYTES % 20.6 % (15.0-51.0); MEAN CORPUSCULAR HEMOGLOBIN 31.1 pg (29.0-33.0); MEAN CORPUSCULAR HGB CONC 31.5 g/dl (32.0-37.0); MEAN CORPUSCULAR VOLUME 98.7 fl (82.0-101.0); MEAN PLATELET VOLUME 9.8 fl (7.4-10.4); MONOCYTE # 0.3 10^3/ul (0.3-0.9); MONOCYTES % 7.9 % (0.0-11.0); NEUTROPHILS % 69.1 % (39.0-77.0); PLATELET COUNT 123 10^3/UL (140-415); RED BLOOD COUNT 3.89 10^6/ul (4.70-6.10); RED CELL DISTRIBUTION WIDTH 16.6 % (11.5-14.5)
[2018-06-21 00:51] LABS: ALANINE AMINOTRANSFERASE 14 IU/L (13-69); ALBUMIN 4.6 g/dl (3.3-4.9); ALBUMIN/GLOBULIN RATIO 1.58; ALKALINE PHOSPHATASE 65 IU/L (42-121); ANION GAP 19 (5-13); ASPARTATE AMINO TRANSFERASE 22 IU/L (15-46); BILIRUBIN,INDIRECT 0.3 mg/dl (0-1.1); BILIRUBIN,TOTAL 0.3 mg/dl (0.2-1.3); BLOOD UREA NITROGEN 58 mg/dl (7-20); CALCIUM 8.8 mg/dl (8.4-10.2); CARBON DIOXIDE 25 mmol/L (21-31); CHLORIDE 96 mmol/L (97-110); CREATININE 10.57 mg/dl (0.61-1.24); Estimated GFR 5 mL/min (>60); GLUCOSE 78 mg/dl (70-220); POTASSIUM 5.8 mmol/L (3.5-5.1); SODIUM 140 mmol/L (135-144); TOTAL PROTEIN 7.5 g/dl (6.1-8.1)
[2018-06-21 01:02] LABS: TROPONIN-I < 0.012 ng/ml (0.000-0.120)
[2018-06-21 01:17] LABS: B-TYPE NATRIURETIC PEPTIDE 66000 PG/ML (0-125)
[2018-06-21] MEDS ORDERED: NITROGLYCERIN (SL) 0.4 MG TAB SL (04:00)
[2018-06-21] MEDS ORDERED: DOCUSATE SODIUM 100 MG CAP PO (04:00)
[2018-06-21] MEDS ORDERED: NACL 0.9% 3 ML SYG IV (04:00)
[2018-06-21] MEDS ORDERED: ONDANSETRON 4 MG TAB PO (04:00)
[2018-06-21] MEDS: morphine 2 MG INJ IV ×5 (05:42→21:20)
[2018-06-21] MEDS ORDERED: HEPARIN 5,000 UNIT/1 ML VIAL SC (06:00)
[2018-06-21 06:10] LABS: CREATINE KINASE 62 IU/L (23-200)
[2018-06-21 06:20] LABS: CK INDEX 1.2; CK-MB 0.74 ng/ml (0.0-2.4); TROPONIN-I 0.032 ng/ml (0.000-0.120)
[2018-06-21] MEDS: NA POLYST SULFON 15 GM/60 ML BTL PO (06:56)
[2018-06-21] MEDS: APIXABAN 5 MG TABLET PO ×2 (08:58→21:20)
[2018-06-21] MEDS: NIFEdipine (XL) 30 MG TAB PO ×2 (08:58→21:23)
[2018-06-21] MEDS: CHLORHEXIDINE GLUCONATE 15 ML UD CUP MT ×2 (08:58→21:19)
[2018-06-21] MEDS: ISOSORBIDE MONONITRATE(SR)30 MG TAB PO (08:58)
[2018-06-21] MEDS: CHOLECALCIFEROL 400 UNITS TAB PO (09:00)
[2018-06-21] MEDS: SEVELAMER CARBONATE 2.4 GM PKT PO ×3 (09:00→21:19)
[2018-06-21] MEDS ORDERED: [UNRECOGNIZED DRUG - OTHER] PO (09:00)
[2018-06-21] MEDS: ALBUTEROL/IPRATROPIUM (NEB) 3 ML AMP HHN ×3 (09:20→20:31)
[2018-06-21] MEDS: FOLIC ACID 1 MG TAB PO (09:47)
[2018-06-21] MEDS: PREGABALIN 75 MG CAP PO ×2 (09:47→21:33)
[2018-06-21 13:09] LABS: CREATINE KINASE 54 IU/L (23-200)
[2018-06-21 13:22] LABS: CK INDEX 1.1; CK-MB 0.61 ng/ml (0.0-2.4); TROPONIN-I 0.034 ng/ml (0.000-0.120)
[2018-06-21 17:18] LABS: HEPATITIS B SURFACE ANTIGEN NEGATIVE (NEGATIVE)
[2018-06-21] MEDS ORDERED: PIBRENTASVIR PO (18:30)
[2018-06-21] MEDS ORDERED: GLECAPREVIR PO (18:30)
[2018-06-21] MEDS: ACETAMINOPHEN 325 MG TAB PO (21:33)
[2018-06-21] MEDS: PIBRENTASVIR PO (23:01)
[2018-06-21] MEDS: GLECAPREVIR PO (23:01)
[2018-06-22 05:12] LABS: ADD MAN DIFF? NO
[2018-06-22 05:20] LABS: ABNORMAL IP MESSAGE 1; BASOPHILS % 0.2 % (0.0-2.0); EOSINOPHILS # 0.1 10^3/ul (0.0-0.5); EOSINOPHILS % 1.5 % (0.0-7.0); HEMOGLOBIN 10.8 g/dl (14.0-18.0); LYMPHOCYTES # 0.7 10^3/ul (0.8-2.9); LYMPHOCYTES % 17.6 % (15.0-51.0); MEAN CORPUSCULAR HEMOGLOBIN 31.4 pg (29.0-33.0); MEAN CORPUSCULAR HGB CONC 32.7 g/dl (32.0-37.0); MEAN CORPUSCULAR VOLUME 95.9 fl (82.0-101.0); MEAN PLATELET VOLUME 9.7 fl (7.4-10.4); MONOCYTE # 0.3 10^3/ul (0.3-0.9); MONOCYTES % 7.4 % (0.0-11.0); NEUTROPHILS % 73.1 % (39.0-77.0); PLATELET COUNT 99 10^3/UL (140-415); POSITIVE DIFF @See below; RED BLOOD COUNT 3.44 10^6/ul (4.70-6.10); RED CELL DISTRIBUTION WIDTH 16.4 % (11.5-14.5)
[2018-06-22 05:45] LABS: ALANINE AMINOTRANSFERASE 17 IU/L (13-69); ALBUMIN 3.8 g/dl (3.3-4.9); ALBUMIN/GLOBULIN RATIO 1.26; ALKALINE PHOSPHATASE 54 IU/L (42-121); ANION GAP 13 (5-13); ASPARTATE AMINO TRANSFERASE 17 IU/L (15-46); BILIRUBIN,INDIRECT 0.7 mg/dl (0-1.1); BILIRUBIN,TOTAL 0.7 mg/dl (0.2-1.3); BLOOD UREA NITROGEN 37 mg/dl (7-20); CALCIUM 8.8 mg/dl (8.4-10.2); CARBON DIOXIDE 29 mmol/L (21-31); CHLORIDE 97 mmol/L (97-110); CREATININE 8.07 mg/dl (0.61-1.24); Estimated GFR 7 mL/min (>60); GLUCOSE 96 mg/dl (70-220); MAGNESIUM 2.3 mg/dl (1.7-2.5); PHOSPHORUS 6.7 mg/dl (2.5-4.9); POTASSIUM 4.6 mmol/L (3.5-5.1); SODIUM 139 mmol/L (135-144); TOTAL PROTEIN 6.8 g/dl (6.1-8.1)
[2018-06-22] MEDS: ALBUTEROL/IPRATROPIUM (NEB) 3 ML AMP HHN ×3 (08:00→20:39)
[2018-06-22] MEDS: APIXABAN 5 MG TABLET PO ×2 (08:48→20:21)
[2018-06-22] MEDS: CHOLECALCIFEROL 400 UNITS TAB PO (08:48)
[2018-06-22] MEDS: morphine 2 MG INJ IV ×3 (08:49→22:27)
[2018-06-22] MEDS: FOLIC ACID 1 MG TAB PO (08:49)
[2018-06-22] MEDS: ISOSORBIDE MONONITRATE(SR)30 MG TAB PO (08:49)
[2018-06-22] MEDS: SEVELAMER CARBONATE 2.4 GM PKT PO ×3 (08:49→18:04)
[2018-06-22] MEDS: CHLORHEXIDINE GLUCONATE 15 ML UD CUP MT ×2 (08:49→20:21)
[2018-06-22] MEDS: NIFEdipine (XL) 30 MG TAB PO ×2 (08:49→20:21)
[2018-06-22] MEDS: PIBRENTASVIR PO (08:50)
[2018-06-22] MEDS: GLECAPREVIR PO (08:50)
[2018-06-22] MEDS: PREGABALIN 75 MG CAP PO ×2 (08:53→20:20)
[2018-06-22] MEDS ORDERED: [UNRECOGNIZED DRUG - OTHER] PO (09:00)
[2018-06-23 05:26] LABS: ADD MAN DIFF? NO
[2018-06-23 05:32] LABS: WHITE BLOOD COUNT 2.6 10^3/ul (4.8-10.8)
[2018-06-23 05:32] LABS: ABNORMAL IP MESSAGE 1; BASOPHILS % 0.8 % (0.0-2.0); EOSINOPHILS # 0.1 10^3/ul (0.0-0.5); EOSINOPHILS % 3.8 % (0.0-7.0); HEMATOCRIT 33.6 % (42.0-52.0); HEMOGLOBIN 10.9 g/dl (14.0-18.0); LYMPHOCYTES # 0.8 10^3/ul (0.8-2.9); LYMPHOCYTES % 31.9 % (15.0-51.0); MEAN CORPUSCULAR HEMOGLOBIN 31.2 pg (29.0-33.0); MEAN CORPUSCULAR HGB CONC 32.4 g/dl (32.0-37.0); MEAN CORPUSCULAR VOLUME 96.3 fl (82.0-101.0); MEAN PLATELET VOLUME 9.5 fl (7.4-10.4); MONOCYTE # 0.3 10^3/ul (0.3-0.9); MONOCYTES % 10.8 % (0.0-11.0); NEUTROPHIL # 1.4 10^3/ul (1.6-7.5); NEUTROPHILS % 52.3 % (39.0-77.0); PLATELET COUNT 95 10^3/UL (140-415); POSITIVE DIFF @See below; RED BLOOD COUNT 3.49 10^6/ul (4.70-6.10); RED CELL DISTRIBUTION WIDTH 15.8 % (11.5-14.5)
[2018-06-23 05:46] LABS: ALANINE AMINOTRANSFERASE 10 IU/L (13-69); ALBUMIN 3.9 g/dl (3.3-4.9); ALBUMIN/GLOBULIN RATIO 1.44; ALKALINE PHOSPHATASE 49 IU/L (42-121); ANION GAP 13 (5-13); ASPARTATE AMINO TRANSFERASE 14 IU/L (15-46); BILIRUBIN,INDIRECT 0.3 mg/dl (0-1.1); BILIRUBIN,TOTAL 0.3 mg/dl (0.2-1.3); BLOOD UREA NITROGEN 52 mg/dl (7-20); CALCIUM 8.3 mg/dl (8.4-10.2); CARBON DIOXIDE 30 mmol/L (21-31); CHLORIDE 96 mmol/L (97-110); CREATININE 10.17 mg/dl (0.61-1.24); Estimated GFR 5 mL/min (>60); GLUCOSE 108 mg/dl (70-220); POTASSIUM 4.4 mmol/L (3.5-5.1); SODIUM 139 mmol/L (135-144); TOTAL PROTEIN 6.6 g/dl (6.1-8.1)
[2018-06-23] MEDS: ISOSORBIDE MONONITRATE(SR)30 MG TAB PO (07:54)
[2018-06-23] MEDS: NIFEdipine (XL) 30 MG TAB PO ×2 (07:55→20:31)
[2018-06-23] MEDS: ALBUTEROL/IPRATROPIUM (NEB) 3 ML AMP HHN ×3 (09:00→20:34)
[2018-06-23] MEDS: APIXABAN 5 MG TABLET PO ×2 (09:49→20:31)
[2018-06-23] MEDS: FOLIC ACID 1 MG TAB PO (09:49)
[2018-06-23] MEDS: CHOLECALCIFEROL 400 UNITS TAB PO (09:49)
[2018-06-23] MEDS: PREGABALIN 75 MG CAP PO ×2 (09:49→20:30)
[2018-06-23] MEDS: SEVELAMER CARBONATE 2.4 GM PKT PO ×3 (09:50→19:29)
[2018-06-23] MEDS: CHLORHEXIDINE GLUCONATE 15 ML UD CUP MT ×2 (10:05→20:30)
[2018-06-23] MEDS: morphine 2 MG INJ IV ×2 (10:06→15:44)
[2018-06-23] MEDS: GLECAPREVIR PO (11:15)
[2018-06-23] MEDS: PIBRENTASVIR PO (11:15)
[2018-06-24] MEDS: morphine 2 MG INJ IV ×5 (05:18→22:37)
[2018-06-24 05:39] LABS: ADD MAN DIFF? NO
[2018-06-24 05:47] LABS: BASOPHILS % 0.3 % (0.0-2.0); EOSINOPHILS # 0.1 10^3/ul (0.0-0.5); EOSINOPHILS % 2.7 % (0.0-7.0); HEMATOCRIT 38.2 % (42.0-52.0); HEMOGLOBIN 12.2 g/dl (14.0-18.0); LYMPHOCYTES # 0.9 10^3/ul (0.8-2.9); LYMPHOCYTES % 31.3 % (15.0-51.0); MEAN CORPUSCULAR HEMOGLOBIN 30.8 pg (29.0-33.0); MEAN CORPUSCULAR HGB CONC 31.9 g/dl (32.0-37.0); MEAN CORPUSCULAR VOLUME 96.5 fl (82.0-101.0); MEAN PLATELET VOLUME 9.6 fl (7.4-10.4); MONOCYTE # 0.3 10^3/ul (0.3-0.9); MONOCYTES % 11.2 % (0.0-11.0); NEUTROPHIL # 1.6 10^3/ul (1.6-7.5); NEUTROPHILS % 53.8 % (39.0-77.0); PLATELET COUNT 102 10^3/UL (140-415); POSITIVE DIFF @See below; RED BLOOD COUNT 3.96 10^6/ul (4.70-6.10); RED CELL DISTRIBUTION WIDTH 15.7 % (11.5-14.5)
[2018-06-24 05:47] LABS: WHITE BLOOD COUNT 2.9 10^3/ul (4.8-10.8)
[2018-06-24 06:28] LABS: ALANINE AMINOTRANSFERASE 18 IU/L (13-69); ALBUMIN 4.1 g/dl (3.3-4.9); ALBUMIN/GLOBULIN RATIO 1.28; ALKALINE PHOSPHATASE 60 IU/L (42-121); ANION GAP 14 (5-13); ASPARTATE AMINO TRANSFERASE 17 IU/L (15-46); BILIRUBIN,INDIRECT 0.1 mg/dl (0-1.1); BILIRUBIN,TOTAL 0.1 mg/dl (0.2-1.3); BLOOD UREA NITROGEN 48 mg/dl (7-20); CALCIUM 9.2 mg/dl (8.4-10.2); CARBON DIOXIDE 29 mmol/L (21-31); CHLORIDE 100 mmol/L (97-110); CREATININE 9.11 mg/dl (0.61-1.24); Estimated GFR 6 mL/min (>60); GLUCOSE 97 mg/dl (70-220); PHOSPHORUS 8.1 mg/dl (2.5-4.9); POTASSIUM 5.2 mmol/L (3.5-5.1); SODIUM 143 mmol/L (135-144); TOTAL PROTEIN 7.3 g/dl (6.1-8.1)
[2018-06-24 06:56] LABS: ANISOCYTOSIS 1+ (0-0); EOSINOPHILS % (M) 6 % (0-7); LYMPHOCYTES #M 1.1 10^3/ul (0.8-2.9); LYMPHOCYTES % (M) 40 % (15-51); MICROCYTOSIS 1+ (0-0); MONOCYTE #M 0.2 10^3/ul (0.3-0.9); MONOCYTES % (M) 7 % (0-11); PLATELET ESTIMATE DECREASED; POLYCHROMASIA 1+ (0-0); SEGMENTED NEUTROPHILS (M) % 47 % (39-77); SMUDGE%M 3 % (0-0)
[2018-06-24] MEDS: SEVELAMER CARBONATE 2.4 GM PKT PO ×3 (07:58→18:22)
[2018-06-24] MEDS: CHOLECALCIFEROL 400 UNITS TAB PO (08:01)
[2018-06-24] MEDS: NIFEdipine (XL) 30 MG TAB PO ×2 (08:01→21:16)
[2018-06-24] MEDS: APIXABAN 5 MG TABLET PO ×2 (08:01→21:16)
[2018-06-24] MEDS: ISOSORBIDE MONONITRATE(SR)30 MG TAB PO (08:02)
[2018-06-24] MEDS: FOLIC ACID 1 MG TAB PO (08:03)
[2018-06-24] MEDS: ALBUTEROL/IPRATROPIUM (NEB) 3 ML AMP HHN ×3 (08:44→20:19)
[2018-06-24] MEDS: CHLORHEXIDINE GLUCONATE 15 ML UD CUP MT ×2 (09:00→21:16)
[2018-06-24] MEDS: GLECAPREVIR PO (09:55)
[2018-06-24] MEDS: PIBRENTASVIR PO (09:55)
[2018-06-24] MEDS: PREGABALIN 75 MG CAP PO ×2 (09:55→21:16)
[2018-06-24] MEDS: BISACODYL (EC) 5 MG TAB PO (14:48)
[2018-06-25 05:24] LABS: ADD MAN DIFF? NO
[2018-06-25 05:34] LABS: BASOPHILS % 0.7 % (0.0-2.0); EOSINOPHILS # 0.1 10^3/ul (0.0-0.5); EOSINOPHILS % 2.7 % (0.0-7.0); HEMATOCRIT 33.6 % (42.0-52.0); LYMPHOCYTES % 34.9 % (15.0-51.0); MEAN CORPUSCULAR HEMOGLOBIN 31.5 pg (29.0-33.0); MEAN CORPUSCULAR HGB CONC 32.7 g/dl (32.0-37.0); MEAN CORPUSCULAR VOLUME 96.3 fl (82.0-101.0); MEAN PLATELET VOLUME 9.6 fl (7.4-10.4); MONOCYTE # 0.3 10^3/ul (0.3-0.9); MONOCYTES % 11.2 % (0.0-11.0); NEUTROPHIL # 1.5 10^3/ul (1.6-7.5); NEUTROPHILS % 49.8 % (39.0-77.0); PLATELET COUNT 105 10^3/UL (140-415); POSITIVE DIFF @See below; RED BLOOD COUNT 3.49 10^6/ul (4.70-6.10); RED CELL DISTRIBUTION WIDTH 15.3 % (11.5-14.5)
[2018-06-25 05:53] LABS: PROTIME 16.3 Sec (11.9-14.9); PT RATIO 1.3
[2018-06-25 06:14] LABS: ALANINE AMINOTRANSFERASE 17 IU/L (13-69); ALBUMIN 3.8 g/dl (3.3-4.9); ALBUMIN/GLOBULIN RATIO 1.46; ALKALINE PHOSPHATASE 54 IU/L (42-121); ANION GAP 14 (5-13); ASPARTATE AMINO TRANSFERASE 17 IU/L (15-46); BILIRUBIN,INDIRECT 0.1 mg/dl (0-1.1); BILIRUBIN,TOTAL 0.1 mg/dl (0.2-1.3); BLOOD UREA NITROGEN 69 mg/dl (7-20); CALCIUM 8.8 mg/dl (8.4-10.2); CARBON DIOXIDE 29 mmol/L (21-31); CHLORIDE 96 mmol/L (97-110); CREATININE 10.52 mg/dl (0.61-1.24); Estimated GFR 5 mL/min (>60); GLUCOSE 100 mg/dl (70-220); PHOSPHORUS 8.3 mg/dl (2.5-4.9); POTASSIUM 5.1 mmol/L (3.5-5.1); SODIUM 139 mmol/L (135-144); TOTAL PROTEIN 6.4 g/dl (6.1-8.1)
[2018-06-25] MEDS: morphine 2 MG INJ IV ×3 (07:39→17:36)
[2018-06-25] MEDS: SEVELAMER CARBONATE 2.4 GM PKT PO ×3 (07:50→17:36)
[2018-06-25] MEDS: ALBUTEROL/IPRATROPIUM (NEB) 3 ML AMP HHN ×3 (08:00→19:33)
[2018-06-25 08:04] LABS: ANISOCYTOSIS 2+ (0-0); BAND NEUTROPHILS % (M) 2 % (0-4); EOSINOPHILS % (M) 1 % (0-7); GIANT THROMBO% (M) 1 % (0-0); LYMPHOCYTES #M 0.8 10^3/ul (0.8-2.9); LYMPHOCYTES % (M) 27 % (15-51); MICROCYTOSIS 2+ (0-0); MONOCYTE #M 0.2 10^3/ul (0.3-0.9); MONOCYTES % (M) 7 % (0-11); PLATELET ESTIMATE DECREASED; POIKILOCYTOSIS 1+ (0-0); POLYCHROMASIA 1+ (0-0); REACTIVE LYMPHOCYTES #M 0.2 10^3/ul (0.0-0.0); REACTIVE LYMPHOCYTES% (M) 8 % (0-0); SEG NEUT #M 1.7 10^3/ul (1.6-7.5); SEGMENTED NEUTROPHILS (M) % 55 % (39-77); SMUDGE%M 2 % (0-0)
[2018-06-25] MEDS: NIFEdipine (XL) 30 MG TAB PO ×2 (09:00→21:00)
[2018-06-25] MEDS: ISOSORBIDE MONONITRATE(SR)30 MG TAB PO (09:00)
[2018-06-25] MEDS: CHLORHEXIDINE GLUCONATE 15 ML UD CUP MT ×2 (12:26→21:00)
[2018-06-25] MEDS: PREGABALIN 75 MG CAP PO ×2 (12:27→21:00)
[2018-06-25] MEDS: CHOLECALCIFEROL 400 UNITS TAB PO (12:28)
[2018-06-25] MEDS: FOLIC ACID 1 MG TAB PO (12:28)
[2018-06-25] MEDS: APIXABAN 5 MG TABLET PO ×2 (12:28→21:00)
[2018-06-25] MEDS: PIBRENTASVIR PO (15:16)
[2018-06-25] MEDS: GLECAPREVIR PO (15:16)
== END 2018-06-25 20:10 | disposition home or self-care (01) | DRG 291 ==
LOC: E/R 21:23 → MS1 06-21 03:33
PROC: 5A1D70Z Performance of Urinary Filtration, Intermittent, Less than 6 Hours Per Day (ICD-10-PCS; principal; 2018-06-21)
DX: I13.2 Hypertensive heart and chronic kidney disease with heart failure and with stage 5 chronic kidney disease, or end stage renal disease (principal); N18.6 End stage renal disease; I50.32 Chronic diastolic (congestive) heart failure; D61.818 Other pancytopenia; Z99.2 Dependence on renal dialysis; E78.5 Hyperlipidemia, unspecified; I48.0 Paroxysmal atrial fibrillation; E87.5 Hyperkalemia; I25.10 Atherosclerotic heart disease of native coronary artery without angina pectoris; B19.20 Unspecified viral hepatitis C without hepatic coma; Z91.14 Patient's other noncompliance with medication regimen; R07.89 Other chest pain
CPT/HCPCS: 71045; 80053; 82306; 82550; 82553; 83735; 83880; 84100; 84484; 85025; 85610; 87340; 90935; 93005; 93308; 94640; 94664